=== PATIENT | female | born 1960 | race Caucasian/White ===

== ENCOUNTER 2017-05-05 07:41 | Day surgery (SDC) | payer BC ==
[2017-05-05] MEDS ORDERED: NS 1000 ML 1,000 ML ONE (07:49)
[2017-05-05] MEDS ORDERED: XYLOCAINE 1% and EPINEPHRINE 1:100,000 ONE (07:49)
[2017-05-05] MEDS ORDERED: MARCAINE 0.25% INJ ONE (07:50)
[2017-05-05 08:17] LABS: BASOPHILS # (AUTO) 0.1 X10^3/uL (0.0-0.1); BASOPHILS % (AUTO) 1.4 % (0.2-1.0); EOSINOPHILS # (AUTO) 0.1 x10^3/uL (0.0-0.2); HEMATOCRIT 40.6 % (36.0-47.0); HEMOGLOBIN 13.8 g/dL (12.0-16.0); LYMPHOCYTES % (AUTO) 25.9 % (21.0-51.0); MEAN CORPUSCULAR HEMOGLOBIN 29.5 pg (27.0-34.0); MEAN CORPUSCULAR HGB CONC 34.1 g/dL (33.0-35.0); MEAN CORPUSCULAR VOLUME 86.4 fL (80.0-100.0); MEAN PLATELET VOLUME 8.4 fL (7.4-11.0); MONOCYTES # (AUTO) 0.5 x10^3/uL (0.3-0.8); MONOCYTES % (AUTO) 6.5 % (0.0-13.0); NEUTROPHILS # (AUTO) 4.9 x10^3/uL (2.2-4.8); NEUTROPHILS % (AUTO) 65.2 % (42.0-75.0); PLATELET COUNT 266 X10^3/uL (150.0-450.0); RED CELL DISTRIBUTION WIDTH 13.5 % (11.6-16.5); WHITE BLOOD COUNT 7.6 X10^3/uL (3.6-10.0)
[2017-05-05 08:26] LABS: ALANINE AMINOTRANSFERASE 32 Units/L (12-78); ALBUMIN 3.9 g/dL (3.4-5.0); ALKALINE PHOSPHATASE 108 Units/L (46-116); ASPARTATE AMINO TRANSFERASE 22 Units/L (15-37); BLOOD UREA NITROGEN 10 mg/dL (7-18); CALCIUM 9.2 mg/dL (8.5-10.1); CARBON DIOXIDE 30.1 mmol/L (21-32); CHLORIDE 106 mmol/L (98-107); CREATININE 0.82 mg/dL (0.55-1.02); SODIUM 140 mmol/L (136-145); TOTAL PROTEIN 7.6 g/dL (6.4-8.2); eGFR BLACK RACES > 60 (>60); eGFR NON BLACK RACES > 60 (>60)
[2017-05-05] MEDS ORDERED: CLEOCIN VIAL 600 MG ONE (08:35)
[2017-05-05] MEDS ORDERED: NS IRRIGATION 1000 ML 500 ML IR ONE (10:22)
[2017-05-05] MEDS ORDERED: NORCO 5/325 MG TAB PO PRN (11:12)
--- NOTE | 2017-05-05 11:12 | OR.GENERIC ---
Post-Op Note Generic - Post-Op Note Operative Report: Operative Report Date of Operation: May 05, 2017 Pre-Operative Diagnosis: Left hip lipoma. Post-Operative Diagnosis: Left hip sebaceous cyst (4.5 cm diameter). Procedure: Excision of left hip sebaceous cyst. Surgeon: Marek Aguirre MD Wood Craftsman: Cortney Franco CRNA Anesthesia: Monitored anesthesia care and local. Specimen: Left hip sebaceous cyst. Estimated blood loss: Minimal. Complications: None. Summary: The patient is a 57 year old female who presented with a left hip subcutaneous mass. This appeared to be a lipoma. The patient was offered excision. The risk and benefits of the procedure including difficulty with anesthesia, bleeding, infection, scar formation, recurrence, and delayed healing were discussed with the patient. The patient understood these risks and requested the procedure. On May 05, 2017, the patient was brought to the operative theatre. A time out was performed verifying the patient and the procedure. After satisfactory induction of monitored anesthesia care, the left hip was prepped with Chloraprep and draped in the usual fashion. A field block was performed using local anesthetic. A fusiform incision was made overlying the mass and a core of skin removed. The capsule was identified and from the dermis in all directions using electrocautery. The deep margin was dissected free using electrocautery. The capsule was passed off the field. Hemostasis was achieved using electrocautery. A stab incision was made inferior to the incision and a flat JOSE ENRIQUE advanced into the wound bed. This was sewn into position with 2-0 Ethilon suture. The dermis was re-approximated using inverted, interrupted 3-0 Vicryl sutures. The skin edges were closed using a running 4-0 Monocryl. Skin veronica were placed sparingly. Mastisol and steri-strips were placed between the veronica. A sterile dressing was placed. The patient was awakened and taken to the recovery room in stable condition. There were no complications. All counts were correct.
[2017-05-05 11:32] VITALS: BP 116/58
[2017-05-05] MEDS ORDERED: DIPRIVAN VIAL ONE (15:25)
[2017-05-05] MEDS ORDERED: VERSED ONE (15:25)
== END 2017-05-05 11:35 | disposition home or self-care (01) | DRG 607 ==
LOC: SURG1 07:41
PROVIDERS: ATTEND Student in an Organized Health Care Education/Training Program
PROC: 0JBM0ZX Excision of Left Upper Leg Subcutaneous Tissue and Fascia, Open Approach, Diagnostic (ICD-10-PCS; principal; 2017-05-05 08:30)
DX: L72.3 Sebaceous cyst (principal)
CPT/HCPCS: 36415; 80053; 85025; A4222; S0020; J2001; J2250; J3490; S0077

== ENCOUNTER 2019-09-01 14:07 | Inpatient (IN) ==
[2019-09-01 21:54] LABS: BASOPHILS # (AUTO) 0.1 X10^3/uL (0.0-0.1); BASOPHILS % (AUTO) 1.2 % (0.2-1.0); EOSINOPHILS # (AUTO) 0.1 x10^3/uL (0.0-0.2); HEMATOCRIT 39.9 % (36.0-47.0); HEMOGLOBIN 13.5 g/dL (12.0-16.0); LYMPHOCYTES # (AUTO) 2.3 X10^3/uL (1.3-2.9); LYMPHOCYTES % (AUTO) 25.3 % (21.0-51.0); MEAN CORPUSCULAR HEMOGLOBIN 28.9 pg (27.0-34.0); MEAN CORPUSCULAR HGB CONC 33.7 g/dL (33.0-35.0); MEAN CORPUSCULAR VOLUME 85.7 fL (80.0-100.0); MEAN PLATELET VOLUME 7.8 fL (7.4-11.0); MONOCYTES # (AUTO) 0.7 x10^3/uL (0.3-0.8); MONOCYTES % (AUTO) 8.1 % (0.0-13.0); NEUTROPHILS # (AUTO) 5.9 x10^3/uL (2.2-4.8); NEUTROPHILS % (AUTO) 64.4 % (42.0-75.0); PLATELET COUNT 316 X10^3/uL (150.0-450.0); RED BLOOD COUNT 4.66 X10^6/uL (3.5-5.4); RED CELL DISTRIBUTION WIDTH 13.6 % (11.6-16.5); WHITE BLOOD COUNT 9.2 X10^3/uL (3.6-10.0)
[2019-09-01 22:05] LABS: ALANINE AMINOTRANSFERASE 18 Units/L (12-78); ALBUMIN 3.4 g/dL (3.4-5.0); ALKALINE PHOSPHATASE 114 Units/L (46-116); ASPARTATE AMINO TRANSFERASE 15 Units/L (15-37); BLOOD UREA NITROGEN 14 mg/dL (7-18); CARBON DIOXIDE 26.4 mmol/L (21-32); CHLORIDE 105 mmol/L (98-107); CREATININE 0.79 mg/dL (0.55-1.02); SODIUM 139 mmol/L (136-145); TOTAL PROTEIN 7.4 g/dL (6.4-8.2); eGFR NON BLACK RACES > 60 (>60)
[2019-09-01] MEDS ORDERED: RESTORIL CAP 15 MG PO PRN (22:48)
[2019-09-01 23:20] VITALS: BMI 25.1
--- NOTE | 2019-09-02 12:03 | RAD ---
HISTORYConstipationSTUDYKUBCOMPARISONNoneFINDINGSThere is fecal distention and dilatation of the left colon. No definite mechanical obstruction is identified. Otherwise the bowel gas pattern is normal. There are surgical clips in the right upper quadrant. No organ enlargement or ascites is demonstrated .IMPRESSIONDescribed findings consistent with constipation.Electronically signed by: SO ADAME ( Sep 02, 2019 12:02:08)
[2019-09-02] MEDS ORDERED: DULCOLAX SUPPOSITORY 10 MG RECTAL ONE (13:42)
--- NOTE | 2019-09-02 13:45 | DR.H&P ---
H&P - History & Physical for Day of: H&P Date: 09/01/19 - Chief Complaint Chief Complaint: L SIDE WEAKNESS, CONSTIPATION, SOB, CCC - History of Present Illness History of Present Illness: PT IS 59 WF BACK TRANSFER FROM [facility] IN [place] FOLLOWING ACUTE CVA WITH LEFT SIDE WEAKNESS. PT HAS PMH OF HTN AND COPD. PT CO CONSTIPATION AND CCC SINCE ACCIDENT. PT REPORTS SHE WAS SICK WITH FLU PRIOR TO CVA. PT ALSO REPORTS SOB WITH ANXIETY, NORMALLY ON XANAX PRN. PT ADMITTED FOR TREATMENT OF ACUTE ILLNESS AND PLANS FOR PT/OT. - Past Medical History Past Medical History: Arthritis, COPD, CVA, Dyslipidemia, Hypertension - Past Surgical History Surgical History: Appendectomy, Cholecystectomy, WARRANTY ADMINISTRATOR Surgery, Ortho Surgery, Tonsillectomy, Other - Family History Family Medical History: Diabetes Mellitus, DE, Coronary Artery Disease, Hypertension - Social History Does patient currently use any type of tobacco product: Yes Have you used tobacco products in the last 12 months: Yes Type of Tobacco Use: Cigarettes Alcohol Use: None Drug Use: None - Medications Home Medications: Penicillins Allergy (Verified 04/21/19 14:02) CONTINUE taking the following medications NK 09/02/19 [History] - Review of Systems Constitutional: Weakness Eyes: No Symptoms Reported ENT: No Symptoms Reported Respiratory: Cough, Shortness of Breath, Wheezing Cardiovascular: No Symptoms Reported Gastrointestinal: Constipation Genitourinary: No Symptoms Reported Musculoskeletal: Shoulder Pain (LEFT), Back Pain Skin: No Symptoms Reported Neurological: Weakness - Physical Exam Vital Signs: Temperature 97.9 F Pulse Rate [Radial] 86 Respiratory Rate 16 Blood Pressure [Right Arm] 144/75 Blood Pressure [Left Arm] 102/57 Blood Pressure 164/70 O2 Sat by Pulse Oximetry 95 Oriented: Normal Eyes: Normal Ear: Normal Nose: Normal Throat: Normal Respiratory: Rhonchi Throughout, RLL Diminished, LLL Diminished Cardiovascular: Normal. negative: Edema : Normal Auscultation: Bowel Sounds: Normal Palpation: Normal Tenderness: Normal Skin: Decreased Turgur Musculoskeletal: Left, Shoulder, Back:Thoracic, Back:Lumbar, Tender Psychiatric: Anxiety Mood Description: Sad, Anxious Affect: Anxious Speech Pattern: Appropriate - Assessment/Plan (1) CVA (cerebral vascular accident) Status: Acute Plan: ADMIT, PT/OT. RESUME MEDICATION, STATIN, PLAVIX BP CONTROL. CXR ON ADMISSION, RESUME DIET TOLERATED. ASPIRATION PRECAUTIONS, RESP CONSULT. PAIN CONTROL, BOWEL REGIMEN (2) COPD (chronic obstructive pulmonary disease) with acute bronchitis Status: Acute (3) GERD (gastroesophageal reflux disease) Status: Chronic (4) Hyperlipidemia Status: Chronic (5) Hypertension Status: Chronic (6) Osteoarthritis Status: Chronic - Allergies Allergies/Adverse Reactions: Allergies Allergy/AdvReac Type Severity Reaction Status Date / Time Penicillins Allergy Verified 04/21/19 14:02
[2019-09-02] MEDS: PLAVIX PO SCH (14:55)
[2019-09-02] MEDS: ZESTRIL TAB 10 MG PO SCH (14:55)
[2019-09-02] MEDS: NICOTINE PATCH TD SCH (14:55)
[2019-09-02] MEDS: ROBITUSSIN DM PO PRN ×2 (14:56→20:58)
[2019-09-02] MEDS: NORCO 5/325 MG TAB PO PRN ×2 (14:56→20:57)
[2019-09-02] MEDS: XANAX PO PRN ×2 (14:56→20:57)
[2019-09-02] MEDS: ZOCOR TAB 20 MG PO SCH (20:57)
[2019-09-02] MEDS: COLACE CAP 100 MG PO SCH (20:58)
[2019-09-02] MEDS: MILK OF MAGNESIA PO SCH (20:59)
[2019-09-02] MEDS: DUONEB 0.5 MG/3 MG (3 mL) NEB SCH (21:00)
[2019-09-02] MEDS ORDERED: ULTRAM ONE (23:50)
[2019-09-02] MEDS: ULTRAM PO PRN (23:51)
[2019-09-03] MEDS: DUONEB 0.5 MG/3 MG (3 mL) NEB SCH ×3 (05:25→21:20)
[2019-09-03 05:30] LABS: BASOPHILS # (AUTO) 0.1 X10^3/uL (0.0-0.1); BASOPHILS % (AUTO) 0.7 % (0.2-1.0); EOSINOPHILS # (AUTO) 0.1 x10^3/uL (0.0-0.2); EOSINOPHILS % (AUTO) 1.4 % (0.9-2.9); HEMATOCRIT 42.5 % (36.0-47.0); HEMOGLOBIN 14.4 g/dL (12.0-16.0); LYMPHOCYTES # (AUTO) 2.2 X10^3/uL (1.3-2.9); LYMPHOCYTES % (AUTO) 26.8 % (21.0-51.0); MEAN CORPUSCULAR HEMOGLOBIN 29.2 pg (27.0-34.0); MEAN CORPUSCULAR HGB CONC 33.7 g/dL (33.0-35.0); MEAN CORPUSCULAR VOLUME 86.6 fL (80.0-100.0); MEAN PLATELET VOLUME 7.8 fL (7.4-11.0); MONOCYTES # (AUTO) 0.6 x10^3/uL (0.3-0.8); MONOCYTES % (AUTO) 7.5 % (0.0-13.0); NEUTROPHILS # (AUTO) 5.2 x10^3/uL (2.2-4.8); NEUTROPHILS % (AUTO) 63.6 % (42.0-75.0); PLATELET COUNT 313 X10^3/uL (150.0-450.0); RED BLOOD COUNT 4.91 X10^6/uL (3.5-5.4); RED CELL DISTRIBUTION WIDTH 13.6 % (11.6-16.5); WHITE BLOOD COUNT 8.1 X10^3/uL (3.6-10.0)
[2019-09-03 06:20] LABS: ALANINE AMINOTRANSFERASE 27 Units/L (12-78); ALBUMIN 3.5 g/dL (3.4-5.0); ALKALINE PHOSPHATASE 116 Units/L (46-116); ASPARTATE AMINO TRANSFERASE 22 Units/L (15-37); BLOOD UREA NITROGEN 14 mg/dL (7-18); CALCIUM 9.3 mg/dL (8.5-10.1); CARBON DIOXIDE 25.7 mmol/L (21-32); CHLORIDE 103 mmol/L (98-107); COR NA(FOR HYPERGLY) 141 mmol/L (136-145); CREATININE 0.78 mg/dL (0.55-1.02); SODIUM 141 mmol/L (136-145); TOTAL PROTEIN 7.7 g/dL (6.4-8.2); eGFR NON BLACK RACES > 60 (>60)
--- NOTE | 2019-09-03 07:12 | RAD ---
HISTORYCOPD, COUGH, CHEST CONGESTIONSTUDYCHEST, 1 VIEWCOMPARISONFebruary 2019.FINDINGSThe trachea is midline. The cardiac silhouette is unremarkable. There is a vertically oriented linear opacity projecting over the right lung base. The lungs are clear of consolidation, focal infiltrate, effusion or pneumothorax. The bony thorax is unremarkable.IMPRESSION1. Probable atelectasis in the right lung base. Otherwise no acute cardiopulmonary abnormality.Electronically signed by: NATALIA LEYVA (Sep 03, 2019 07:10:43)
[2019-09-03] MEDS: NICOTINE PATCH TD SCH (08:23)
[2019-09-03] MEDS: ZESTRIL TAB 10 MG PO SCH (08:23)
[2019-09-03] MEDS: PLAVIX PO SCH (08:26)
[2019-09-03] MEDS ORDERED: MILK OF MAGNESIA PO SCH (10:00)
[2019-09-03] MEDS: NORCO 5/325 MG TAB PO PRN ×2 (10:33→18:58)
[2019-09-03] MEDS: MIRALAX POWDER (1 DOSE 17 G) PO SCH (10:36)
[2019-09-03] MEDS: ULTRAM PO PRN ×2 (15:18→21:30)
[2019-09-03] MEDS: XANAX PO PRN (15:18)
[2019-09-03] MEDS: ZOCOR TAB 20 MG PO SCH (21:17)
[2019-09-03] MEDS: COLACE CAP 100 MG PO SCH (21:17)
[2019-09-03] MEDS: MILK OF MAGNESIA PO SCH (22:23)
[2019-09-04] MEDS: NORCO 5/325 MG TAB PO PRN ×2 (04:45→12:35)
[2019-09-04 05:25] LABS: BASOPHILS # (AUTO) 0.1 X10^3/uL (0.0-0.1); BASOPHILS % (AUTO) 0.9 % (0.2-1.0); EOSINOPHILS # (AUTO) 0.1 x10^3/uL (0.0-0.2); EOSINOPHILS % (AUTO) 1.2 % (0.9-2.9); HEMATOCRIT 40.6 % (36.0-47.0); HEMOGLOBIN 13.7 g/dL (12.0-16.0); LYMPHOCYTES # (AUTO) 1.9 X10^3/uL (1.3-2.9); LYMPHOCYTES % (AUTO) 25.4 % (21.0-51.0); MEAN CORPUSCULAR HEMOGLOBIN 29.1 pg (27.0-34.0); MEAN CORPUSCULAR HGB CONC 33.7 g/dL (33.0-35.0); MEAN CORPUSCULAR VOLUME 86.4 fL (80.0-100.0); MEAN PLATELET VOLUME 7.9 fL (7.4-11.0); MONOCYTES # (AUTO) 0.6 x10^3/uL (0.3-0.8); MONOCYTES % (AUTO) 7.6 % (0.0-13.0); NEUTROPHILS # (AUTO) 4.8 x10^3/uL (2.2-4.8); NEUTROPHILS % (AUTO) 64.9 % (42.0-75.0); PLATELET COUNT 353 X10^3/uL (150.0-450.0); RED CELL DISTRIBUTION WIDTH 13.9 % (11.6-16.5); WHITE BLOOD COUNT 7.4 X10^3/uL (3.6-10.0)
[2019-09-04] MEDS: DUONEB 0.5 MG/3 MG (3 mL) NEB SCH ×3 (05:25→21:00)
[2019-09-04 05:50] LABS: ALANINE AMINOTRANSFERASE 38 Units/L (12-78); ALBUMIN 3.4 g/dL (3.4-5.0); ALKALINE PHOSPHATASE 115 Units/L (46-116); ASPARTATE AMINO TRANSFERASE 29 Units/L (15-37); BLOOD UREA NITROGEN 11 mg/dL (7-18); CARBON DIOXIDE 30.1 mmol/L (21-32); CHLORIDE 102 mmol/L (98-107); COR NA(FOR HYPERGLY) 140 mmol/L (136-145); CREATININE 0.66 mg/dL (0.55-1.02); SODIUM 139 mmol/L (136-145); TOTAL PROTEIN 7.5 g/dL (6.4-8.2); eGFR NON BLACK RACES > 60 (>60)
[2019-09-04] MEDS: ULTRAM PO PRN ×3 (07:02→21:12)
[2019-09-04] MEDS: ZESTRIL TAB 10 MG PO SCH (08:39)
[2019-09-04] MEDS: PLAVIX PO SCH (08:39)
[2019-09-04] MEDS: NICOTINE PATCH TD SCH (08:40)
[2019-09-04] MEDS: MIRALAX POWDER (1 DOSE 17 G) PO SCH (08:47)
[2019-09-04] MEDS: LOVENOX INJ 40 MG SYR SC SCH (10:33)
[2019-09-04] MEDS: ASPIRIN EC 81 MG PO SCH (14:44)
[2019-09-04] MEDS: COLACE CAP 100 MG PO SCH (21:12)
[2019-09-04] MEDS: ZOCOR TAB 20 MG PO SCH (21:13)
[2019-09-04] MEDS: XANAX PO PRN (21:18)
[2019-09-05] MEDS: MILK OF MAGNESIA PO SCH ×2 (00:33→21:04)
[2019-09-05] MEDS: DUONEB 0.5 MG/3 MG (3 mL) NEB SCH ×3 (05:36→20:25)
[2019-09-05 06:26] LABS: BASOPHILS # (AUTO) 0.1 X10^3/uL (0.0-0.1); BASOPHILS % (AUTO) 1.3 % (0.2-1.0); EOSINOPHILS # (AUTO) 0.1 x10^3/uL (0.0-0.2); EOSINOPHILS % (AUTO) 1.7 % (0.9-2.9); HEMATOCRIT 39.9 % (36.0-47.0); HEMOGLOBIN 13.5 g/dL (12.0-16.0); LYMPHOCYTES # (AUTO) 1.5 X10^3/uL (1.3-2.9); LYMPHOCYTES % (AUTO) 23.6 % (21.0-51.0); MEAN CORPUSCULAR HEMOGLOBIN 29.2 pg (27.0-34.0); MEAN CORPUSCULAR HGB CONC 33.8 g/dL (33.0-35.0); MEAN CORPUSCULAR VOLUME 86.3 fL (80.0-100.0); MEAN PLATELET VOLUME 7.9 fL (7.4-11.0); MONOCYTES # (AUTO) 0.7 x10^3/uL (0.3-0.8); MONOCYTES % (AUTO) 10.5 % (0.0-13.0); NEUTROPHILS # (AUTO) 3.9 x10^3/uL (2.2-4.8); NEUTROPHILS % (AUTO) 62.9 % (42.0-75.0); PLATELET COUNT 337 X10^3/uL (150.0-450.0); RED BLOOD COUNT 4.62 X10^6/uL (3.5-5.4); RED CELL DISTRIBUTION WIDTH 13.9 % (11.6-16.5); WHITE BLOOD COUNT 6.2 X10^3/uL (3.6-10.0)
[2019-09-05 06:36] LABS: ALANINE AMINOTRANSFERASE 38 Units/L (12-78); ALBUMIN 3.5 g/dL (3.4-5.0); ALKALINE PHOSPHATASE 103 Units/L (46-116); ASPARTATE AMINO TRANSFERASE 23 Units/L (15-37); BLOOD UREA NITROGEN 10 mg/dL (7-18); CALCIUM 9.2 mg/dL (8.5-10.1); CARBON DIOXIDE 30.6 mmol/L (21-32); CHLORIDE 103 mmol/L (98-107); COR NA(FOR HYPERGLY) 139 mmol/L (136-145); CREATININE 0.78 mg/dL (0.55-1.02); SODIUM 139 mmol/L (136-145); TOTAL PROTEIN 7.5 g/dL (6.4-8.2); eGFR NON BLACK RACES > 60 (>60)
[2019-09-05] MEDS: NICOTINE PATCH TD SCH (08:35)
[2019-09-05] MEDS: MIRALAX POWDER (1 DOSE 17 G) PO SCH (08:36)
[2019-09-05] MEDS: LOVENOX INJ 40 MG SYR SC SCH (08:36)
[2019-09-05] MEDS: PLAVIX PO SCH (08:37)
[2019-09-05] MEDS: ZESTRIL TAB 10 MG PO SCH (08:41)
[2019-09-05] MEDS: ASPIRIN EC 81 MG PO SCH (08:43)
[2019-09-05] MEDS: NORCO 5/325 MG TAB PO PRN ×3 (08:44→21:07)
[2019-09-05] MEDS: XANAX PO PRN ×2 (09:48→21:07)
[2019-09-05] MEDS: ULTRAM PO PRN (14:07)
[2019-09-05] MEDS ORDERED: LEXAPRO ONE (16:26)
[2019-09-05] MEDS: VALTREX PO SCH ×2 (16:32→21:04)
[2019-09-05] MEDS: LEXAPRO PO SCH ×2 (16:32→21:03)
[2019-09-05] MEDS ORDERED: MAALOX or MYLANTA PO PRN (16:56)
--- NOTE | 2019-09-05 18:46 | PCM.PROG ---
Progress Note - Progress Note for Day of Date of Exam: 09/04/19 - Subjective Subjective: The patient is a 59-year-old white female who is back for admission from [facility] following a CVA with left upper and lower extremity weakness noted. The patient has been resumed medications including Aspirin, Guerita, Plavix, and blood pressure control. The patient suffers from severe lumbar spine degenerative disc disease and has been complaining of pain as well as pain to her left shoulder. We have resumed her pain medications as well. We will obtain MRI in the morning to evaluate the patients severity of the degenerative disc disease. The patient has had a PT/OT consult. She is reporting good oral intake as well. We started the patient on a low dose of Lexapro due to some anxiety and depression regarding her acute illness of the new CVA. Pt is having sputum production and diffuse lower expiratory wheezing, currently on duo nebs and iv atbx for bronchitis. - Past Medical Family Social History Past Med/Fam/Surg Hx: No changes since H&P Allergies: Allergies Penicillins Allergy (Verified 04/21/19 14:02) - Review of Systems ROS: No change since H&P - Vital Signs and I&O's Vital Signs: Temperature 97.9 F Pulse Rate [Radial] 86 Pulse Rate 92 Respiratory Rate 16 Blood Pressure [Right Arm] 122/67 Blood Pressure [Left Arm] 114/63 Blood Pressure 164/70 O2 Sat by Pulse Oximetry 94 Intake and Output: Intake & Output 09/03/19 09/04/19 09/05/19 09/06/19 11:59 11:59 11:59 11:59 Intake Total 1040 / 1040 1680 / 1680 2510 / 2510 680 / 680 Balance 1040 / 1040 1680 / 1680 2510 / 2510 680 / 680 - Physical Exam Oriented: Normal Eyes: Normal Ear: Normal Nose: Normal Throat: Normal Respiratory: Wheezes, Rhonchi Cardiovascular: Normal. negative: Edema : Normal Auscultation: Bowel Sounds: Normal Tenderness: Normal Skin: Decreased Turgur Musculoskeletal: Left, Shoulder, Back:Thoracic, Back:Lumbar, Tender Psychiatric: Anxiety Mood Description: Sad, Anxious Affect: Anxious Speech Pattern: Clear, Appropriate - Laboratory and Diagnostics Result Diagrams: 09/05/19 05:20 09/05/19 05:20 Labs: Laboratory WBC 6.2 X10^3/uL (3.6-10.0) 09/05/19 05:20 RBC 4.62 X10^6/uL (3.5-5.4) 09/05/19 05:20 Hgb 13.5 g/dL (12.0-16.0) 09/05/19 05:20 Hct 39.9 % (36.0-47.0) 09/05/19 05:20 MCV 86.3 fL (80.0-100.0) 09/05/19 05:20 MCH 29.2 pg (27.0-34.0) 09/05/19 05:20 MCHC 33.8 g/dL (33.0-35.0) 09/05/19 05:20 RDW 13.9 % (11.6-16.5) 09/05/19 05:20 Plt Count 337 X10^3/uL (150.0-450.0) 09/05/19 05:20 MPV 7.9 fL (7.4-11.0) 09/05/19 05:20 Neut % (Auto) 62.9 % (42.0-75.0) 09/05/19 05:20 Lymph % (Auto) 23.6 % (21.0-51.0) 09/05/19 05:20 [place] % (Auto) 10.5 % (0.0-13.0) 09/05/19 05:20 Eos % (Auto) 1.7 % (0.9-2.9) 09/05/19 05:20 Baso % (Auto) 1.3 % (0.2-1.0) H 09/05/19 05:20 Neut # (Auto) 3.9 x10^3/uL (2.2-4.8) 09/05/19 05:20 Lymph # (Auto) 1.5 X10^3/uL (1.3-2.9) 09/05/19 05:20 Calvert # (Auto) 0.7 x10^3/uL (0.3-0.8) 09/05/19 05:20 Eos # (Auto) 0.1 x10^3/uL (0.0-0.2) 09/05/19 05:20 Baso # (Auto) 0.1 X10^3/uL (0.0-0.1) 09/05/19 05:20 Absolute Nucleated RBC 0.0 /100WBC 09/05/19 05:20 Sodium 139 mmol/L (136-145) 09/05/19 05:20 Corrected Sodium 139 mmol/L (136-145) 09/05/19 05:20 Potassium 4.1 mmol/L (3.5-5.1) 09/05/19 05:20 Chloride 103 mmol/L (98-107) 09/05/19 05:20 Carbon Dioxide 30.6 mmol/L (21-32) 09/05/19 05:20 BUN 10 mg/dL (7-18) 09/05/19 05:20 Creatinine 0.78 mg/dL (0.55-1.02) 09/05/19 05:20 Est GFR (MDRD) Af Amer > 60 (>60) 09/05/19 05:20 Est GFR (MDRD) Non-Af > 60 (>60) 09/05/19 05:20 Glucose 113 mg/dL (65-99) H 09/05/19 05:20 Calcium 9.2 mg/dL (8.5-10.1) 09/05/19 05:20 Corrected Calcium TNP 09/05/19 05:20 Magnesium 2.1 mg/dL (1.7-2.9) 09/03/19 04:58 Total Bilirubin 0.40 mg/dL (0.2-1.0) 09/05/19 05:20 AST 23 Units/L (15-37) 09/05/19 05:20 ALT 38 Units/L (12-78) 09/05/19 05:20 Alkaline Phosphatase 103 Units/L (46-116) 09/05/19 05:20 Total Protein 7.5 g/dL (6.4-8.2) 09/05/19 05:20 Albumin 3.5 g/dL (3.4-5.0) 09/05/19 05:20 Globulin 4.0 g/dL (2.5-4.5) 09/05/19 05:20 Albumin/Globulin Ratio 0.9 Ratio (1.1-2.1) L 09/05/19 05:20 - Plan (1) CVA (cerebral vascular accident) Status: Acute Plan: ADMIT, PT/OT. RESUME MEDICATION, STATIN, PLAVIX BP CONTROL. CXR ON ADMISSION, RESUME DIET TOLERATED. ASPIRATION PRECAUTIONS, RESP CONSULT. PAIN CONTROL, BOWEL REGIMEN (2) COPD (chronic obstructive pulmonary disease) with acute bronchitis Status: Acute (3) GERD (gastroesophageal reflux disease) Status: Chronic (4) Hyperlipidemia Status: Chronic (5) Hypertension Status: Chronic (6) Osteoarthritis Status: Chronic
--- NOTE | 2019-09-05 18:48 | PCM.PROG ---
Progress Note - Progress Note for Day of Date of Exam: 09/05/19 - Subjective Subjective: The patient is a 59-year-old white female who is [facility] for [facility] following a CVA with left upper and lower extremity weakness noted. The patient has been resumed medications including Aspirin, Guerita, Plavix, and blood pressure control. The patient suffers from severe lumbar spine degenerative disc disease and has been complaining of pain as well as pain to her left shoulder. We have resumed her pain medications as well. Pt to have MRI of lspine this am to evaluate the patients severity of the degenerative disc disease. The patient has had a PT/OT consult. She is reporting good oral intake as well. We started the patient on a low dose of Lexapro due to some anxiety and depression regarding her acute illness of the new CVA. Pt is having sputum production and diffuse lower expiratory wheezing, currently on duo nebs and iv atbx for bronchitis. Pt has new patch of vesicular lesion with erythematous base to right buttock. Pt started on gabapentin and po valtrex for shingles rash. - Past Medical Family Social History Past Med/Fam/Surg Hx: No changes since H&P Allergies: Allergies Penicillins Allergy (Verified 04/21/19 14:02) - Review of Systems ROS: No change since H&P - Vital Signs and I&O's Vital Signs: Temperature 97.9 F Pulse Rate [Radial] 86 Pulse Rate 92 Respiratory Rate 16 Blood Pressure [Right Arm] 122/67 Blood Pressure [Left Arm] 114/63 Blood Pressure 164/70 O2 Sat by Pulse Oximetry 94 Intake and Output: Intake & Output 09/03/19 09/04/19 09/05/19 09/06/19 11:59 11:59 11:59 11:59 Intake Total 1040 / 1040 1680 / 1680 2510 / 2510 680 / 680 Balance 1040 / 1040 1680 / 1680 2510 / 2510 680 / 680 - Physical Exam Oriented: Normal Eyes: Normal Ear: Normal Nose: Normal Throat: Normal Respiratory: Wheezes, Rhonchi Cardiovascular: Normal. negative: Edema : Normal Auscultation: Bowel Sounds: Normal Tenderness: Normal Skin: Rash, Vesicular, Red, Tender Musculoskeletal: Left, Shoulder, Back:Thoracic, Back:Lumbar, Tender Psychiatric: Anxiety Mood Description: Sad, Anxious Affect: Anxious Speech Pattern: Clear, Appropriate - Laboratory and Diagnostics Result Diagrams: 09/05/19 05:20 09/05/19 05:20 Labs: Laboratory WBC 6.2 X10^3/uL (3.6-10.0) 09/05/19 05:20 RBC 4.62 X10^6/uL (3.5-5.4) 09/05/19 05:20 Hgb 13.5 g/dL (12.0-16.0) 09/05/19 05:20 Hct 39.9 % (36.0-47.0) 09/05/19 05:20 MCV 86.3 fL (80.0-100.0) 09/05/19 05:20 MCH 29.2 pg (27.0-34.0) 09/05/19 05:20 MCHC 33.8 g/dL (33.0-35.0) 09/05/19 05:20 RDW 13.9 % (11.6-16.5) 09/05/19 05:20 Plt Count 337 X10^3/uL (150.0-450.0) 09/05/19 05:20 MPV 7.9 fL (7.4-11.0) 09/05/19 05:20 Neut % (Auto) 62.9 % (42.0-75.0) 09/05/19 05:20 Lymph % (Auto) 23.6 % (21.0-51.0) 09/05/19 05:20 [place] % (Auto) 10.5 % (0.0-13.0) 09/05/19 05:20 Eos % (Auto) 1.7 % (0.9-2.9) 09/05/19 05:20 Baso % (Auto) 1.3 % (0.2-1.0) H 09/05/19 05:20 Neut # (Auto) 3.9 x10^3/uL (2.2-4.8) 09/05/19 05:20 Lymph # (Auto) 1.5 X10^3/uL (1.3-2.9) 09/05/19 05:20 [place] # (Auto) 0.7 x10^3/uL (0.3-0.8) 09/05/19 05:20 Eos # (Auto) 0.1 x10^3/uL (0.0-0.2) 09/05/19 05:20 Baso # (Auto) 0.1 X10^3/uL (0.0-0.1) 09/05/19 05:20 Absolute Nucleated RBC 0.0 /100WBC 09/05/19 05:20 Sodium 139 mmol/L (136-145) 09/05/19 05:20 Corrected Sodium 139 mmol/L (136-145) 09/05/19 05:20 Potassium 4.1 mmol/L (3.5-5.1) 09/05/19 05:20 Chloride 103 mmol/L (98-107) 09/05/19 05:20 Carbon Dioxide 30.6 mmol/L (21-32) 09/05/19 05:20 BUN 10 mg/dL (7-18) 09/05/19 05:20 Creatinine 0.78 mg/dL (0.55-1.02) 09/05/19 05:20 Est GFR (MDRD) Af Amer > 60 (>60) 09/05/19 05:20 Est GFR (MDRD) Non-Af > 60 (>60) 09/05/19 05:20 Glucose 113 mg/dL (65-99) H 09/05/19 05:20 Calcium 9.2 mg/dL (8.5-10.1) 09/05/19 05:20 Corrected Calcium TNP 09/05/19 05:20 Magnesium 2.1 mg/dL (1.7-2.9) 09/03/19 04:58 Total Bilirubin 0.40 mg/dL (0.2-1.0) 09/05/19 05:20 AST 23 Units/L (15-37) 09/05/19 05:20 ALT 38 Units/L (12-78) 09/05/19 05:20 Alkaline Phosphatase 103 Units/L (46-116) 09/05/19 05:20 Total Protein 7.5 g/dL (6.4-8.2) 09/05/19 05:20 Albumin 3.5 g/dL (3.4-5.0) 09/05/19 05:20 Globulin 4.0 g/dL (2.5-4.5) 09/05/19 05:20 Albumin/Globulin Ratio 0.9 Ratio (1.1-2.1) L 09/05/19 05:20 - Plan (1) CVA (cerebral vascular accident) Status: Acute Plan: ADMIT, PT/OT. RESUME MEDICATION, STATIN, PLAVIX BP CONTROL. CXR ON ADMISSION, RESUME DIET TOLERATED. ASPIRATION PRECAUTIONS, RESP CONSULT. PAIN CONTROL, BOWEL REGIMEN (2) COPD (chronic obstructive pulmonary disease) with acute bronchitis Status: Acute (3) GERD (gastroesophageal reflux disease) Status: Chronic (4) Hyperlipidemia Status: Chronic (5) Hypertension Status: Chronic (6) Osteoarthritis Status: Chronic (7) Shingles Status: Acute
[2019-09-05] MEDS: COLACE CAP 100 MG PO SCH (21:03)
[2019-09-05] MEDS: NEURONTIN CAP 100 MG PO SCH ×3 (21:03→21:07)
[2019-09-05] MEDS: ZOCOR TAB 20 MG PO SCH (21:04)
[2019-09-06] MEDS: DUONEB 0.5 MG/3 MG (3 mL) NEB SCH ×3 (05:20→20:15)
[2019-09-06] MEDS: NEURONTIN CAP 100 MG PO SCH ×3 (06:13→22:11)
[2019-09-06 06:14] LABS: BASOPHILS # (AUTO) 0.1 X10^3/uL (0.0-0.1); BASOPHILS % (AUTO) 0.5 % (0.2-1.0); EOSINOPHILS # (AUTO) 0.1 x10^3/uL (0.0-0.2); EOSINOPHILS % (AUTO) 0.4 % (0.9-2.9); HEMATOCRIT 39.4 % (36.0-47.0); HEMOGLOBIN 13.4 g/dL (12.0-16.0); LYMPHOCYTES # (AUTO) 1.6 X10^3/uL (1.3-2.9); MEAN CORPUSCULAR HGB CONC 33.9 g/dL (33.0-35.0); MEAN CORPUSCULAR VOLUME 85.6 fL (80.0-100.0); MEAN PLATELET VOLUME 7.9 fL (7.4-11.0); MONOCYTES # (AUTO) 0.7 x10^3/uL (0.3-0.8); MONOCYTES % (AUTO) 6.2 % (0.0-13.0); NEUTROPHILS # (AUTO) 9.3 x10^3/uL (2.2-4.8); NEUTROPHILS % (AUTO) 78.9 % (42.0-75.0); PLATELET COUNT 330 X10^3/uL (150.0-450.0); RED CELL DISTRIBUTION WIDTH 13.4 % (11.6-16.5); WHITE BLOOD COUNT 11.8 X10^3/uL (3.6-10.0)
[2019-09-06 06:33] LABS: ALANINE AMINOTRANSFERASE 33 Units/L (12-78); ALBUMIN 3.4 g/dL (3.4-5.0); ALKALINE PHOSPHATASE 118 Units/L (46-116); ASPARTATE AMINO TRANSFERASE 19 Units/L (15-37); BLOOD UREA NITROGEN 11 mg/dL (7-18); CARBON DIOXIDE 27.1 mmol/L (21-32); CHLORIDE 99 mmol/L (98-107); COR NA(FOR HYPERGLY) 134 mmol/L (136-145); CREATININE 0.69 mg/dL (0.55-1.02); SODIUM 134 mmol/L (136-145); TOTAL PROTEIN 7.6 g/dL (6.4-8.2); eGFR NON BLACK RACES > 60 (>60)
[2019-09-06] MEDS: MIRALAX POWDER (1 DOSE 17 G) PO SCH (08:45)
[2019-09-06] MEDS: VALTREX PO SCH ×2 (08:52→22:10)
--- NOTE | 2019-09-06 08:52 | MRI ---
HISTORYLOW BACK PAINSTUDYMRI L SPINE W/O IV CONTRASTCOMPARISONNoneTECHNIQUEMultiplanar multisequence MRI of the lumbar spine was obtained without IV contrast.FINDINGSThe conus terminates at the L1 level. No spondylolisthesis. No compression fract ure or abnormal bony signal. There are bilateral adrenal nodules. Left adrenal nodule measures 2.0 x 1.2 cm. Right adrenal nodule measures 2.1 x 0.6 cm. Further evaluation with MRI of the adrenal glands using inphase and out of phase imaging is recommended.T12 -- L1: No significant stenosis.L1 -- L2: No significant stenosis.L2 -- L3: Mild right-sided disc bulge causes little right neural foraminal na rrowing.L3 -- L4: No significant stenosis.L4 -- L5: No significant stenosis. Mild facet arthropathy a nd hypertrophy. Mild left-sided disc bulge with tear of the annulus causes little left neural foramin al narrowing.L5 -- S1:No significant stenosis.IMPRESSIONMild left-sided disc bulge with tear of the a nnulus at L4-5 causes little left neural foraminal narrowing. No significant central canal stenosis i s seen on this study. Mild right-sided disc bulge is present at L2-3.Bilateral adrenal nodules should be further evaluated with MRI of the adrenal glands.Electronically signed by: Anuj Carbajal (Aug [id number] 08:51:18)
[2019-09-06] MEDS: ASPIRIN EC 81 MG PO SCH (08:53)
[2019-09-06] MEDS: LOVENOX INJ 40 MG SYR SC SCH (08:56)
[2019-09-06] MEDS: PLAVIX PO SCH (08:56)
[2019-09-06] MEDS: NICOTINE PATCH TD SCH (09:00)
[2019-09-06] MEDS: ULTRAM PO PRN (09:06)
[2019-09-06] MEDS: XANAX PO PRN ×2 (09:07→22:13)
[2019-09-06] MEDS: ZESTRIL TAB 10 MG PO SCH (10:10)
[2019-09-06] MEDS: NORCO 5/325 MG TAB PO PRN ×2 (14:55→22:11)
--- NOTE | 2019-09-06 18:42 | PCM.PROG ---
Progress Note - Progress Note for Day of Date of Exam: 09/06/19 - Subjective Subjective: The patient is a 59-year-old white female who is back for admission from [facility] following a CVA with left upper and lower extremity weakness noted. The patient has been resumed medications including Aspirin, Guerita, Plavix, and blood pressure control. The patient suffers from severe lumbar spine degenerative disc disease and has been complaining of pain as well as pain to her left shoulder. We have resumed her pain medications as well. Pt to have MRI of lspine this am to evaluate the patients severity of the degenerative disc disease. The patient has had a PT/OT consult. She is reporting good oral intake as well. We started the patient on a low dose of Lexapro due to some anxiety and depression regarding her acute illness of the new CVA. Pt is having sputum production and diffuse lower expiratory wheezing, currently on duo nebs and iv atbx for bronchitis. Pt has new patch of vesicular lesion with erythematous base to right buttock. Pt started on gabapentin and po valtrex for shingles rash. Pt MRI of lspine revealed adrenal mass, MRI of abd with contrast ordered with premedication for treatment of anxiety. Pt family contacted about DME and plan of care for DC home. - Past Medical Family Social History Past Med/Fam/Surg Hx: No changes since H&P Allergies: Allergies Penicillins Allergy (Verified 04/21/19 14:02) - Review of Systems ROS: No change since H&P - Vital Signs and I&O's Vital Signs: Temperature 98.1 F Pulse Rate [Radial] 87 Pulse Rate 81 Respiratory Rate 18 Blood Pressure [Right Arm] 116/57 Blood Pressure [Left Arm] 114/63 Blood Pressure 164/70 O2 Sat by Pulse Oximetry 96 Intake and Output: Intake & Output 09/04/19 09/05/19 09/06/19 09/07/19 11:59 11:59 11:59 11:59 Intake Total 1680 / 1680 2510 / 2510 1640 / 1640 1160 / 1160 Balance 1680 / 1680 2510 / 2510 1640 / 1640 1160 / 1160 - Physical Exam Oriented: Normal Eyes: Normal Ear: Normal Nose: Normal Throat: Normal Respiratory: Wheezes, Rhonchi Cardiovascular: Normal. negative: Edema : Normal Auscultation: Bowel Sounds: Normal Tenderness: Normal Skin: Rash, Vesicular, Red, Tender Musculoskeletal: Left, Shoulder, Back:Thoracic, Back:Lumbar, Tender Psychiatric: Anxiety Mood Description: Sad, Anxious Affect: Anxious Speech Pattern: Clear, Appropriate - Laboratory and Diagnostics Result Diagrams: 09/06/19 05:16 09/06/19 05:16 Labs: Laboratory WBC 11.8 X10^3/uL (3.6-10.0) H 09/06/19 05:16 RBC 4.60 X10^6/uL (3.5-5.4) 09/06/19 05:16 Hgb 13.4 g/dL (12.0-16.0) 09/06/19 05:16 Hct 39.4 % (36.0-47.0) 09/06/19 05:16 MCV 85.6 fL (80.0-100.0) 09/06/19 05:16 MCH 29.0 pg (27.0-34.0) 09/06/19 05:16 MCHC 33.9 g/dL (33.0-35.0) 09/06/19 05:16 RDW 13.4 % (11.6-16.5) 09/06/19 05:16 Plt Count 330 X10^3/uL (150.0-450.0) 09/06/19 05:16 MPV 7.9 fL (7.4-11.0) 09/06/19 05:16 Neut % (Auto) 78.9 % (42.0-75.0) H 09/06/19 05:16 Lymph % (Auto) 14.0 % (21.0-51.0) L 09/06/19 05:16 Edwards % (Auto) 6.2 % (0.0-13.0) 09/06/19 05:16 Eos % (Auto) 0.4 % (0.9-2.9) L 09/06/19 05:16 Baso % (Auto) 0.5 % (0.2-1.0) 09/06/19 05:16 Neut # (Auto) 9.3 x10^3/uL (2.2-4.8) H 09/06/19 05:16 Lymph # (Auto) 1.6 X10^3/uL (1.3-2.9) 09/06/19 05:16 Edwards # (Auto) 0.7 x10^3/uL (0.3-0.8) 09/06/19 05:16 Eos # (Auto) 0.1 x10^3/uL (0.0-0.2) 09/06/19 05:16 Baso # (Auto) 0.1 X10^3/uL (0.0-0.1) 09/06/19 05:16 Absolute Nucleated RBC 0.0 /100WBC 09/06/19 05:16 Sodium 134 mmol/L (136-145) L 09/06/19 05:16 Corrected Sodium 134 mmol/L (136-145) L 09/06/19 05:16 Potassium 4.2 mmol/L (3.5-5.1) 09/06/19 05:16 Chloride 99 mmol/L (98-107) 09/06/19 05:16 Carbon Dioxide 27.1 mmol/L (21-32) 09/06/19 05:16 BUN 11 mg/dL (7-18) 09/06/19 05:16 Creatinine 0.69 mg/dL (0.55-1.02) 09/06/19 05:16 Est GFR (MDRD) Af Amer > 60 (>60) 09/06/19 05:16 Est GFR (MDRD) Non-Af > 60 (>60) 09/06/19 05:16 Glucose 118 mg/dL (65-99) H 09/06/19 05:16 Calcium 9.0 mg/dL (8.5-10.1) 09/06/19 05:16 Corrected Calcium TNP 09/06/19 05:16 Magnesium 2.1 mg/dL (1.7-2.9) 09/03/19 04:58 Total Bilirubin 0.80 mg/dL (0.2-1.0) 09/06/19 05:16 AST 19 Units/L (15-37) 09/06/19 05:16 ALT 33 Units/L (12-78) 09/06/19 05:16 Alkaline Phosphatase 118 Units/L (46-116) H 09/06/19 05:16 Total Protein 7.6 g/dL (6.4-8.2) 09/06/19 05:16 Albumin 3.4 g/dL (3.4-5.0) 09/06/19 05:16 Globulin 4.2 g/dL (2.5-4.5) 09/06/19 05:16 Albumin/Globulin Ratio 0.8 Ratio (1.1-2.1) L 09/06/19 05:16 - Plan (1) CVA (cerebral vascular accident) Status: Acute Plan: PT/OT. RESUME MEDICATION, STATIN, PLAVIX BP CONTROL. CXR ON ADMISSION, RESUME DIET TOLERATED. ASPIRATION PRECAUTIONS, RESP CONSULT. PAIN CONTROL, BOWEL REGIMEN (2) COPD (chronic obstructive pulmonary disease) with acute bronchitis Status: Acute (3) GERD (gastroesophageal reflux disease) Status: Chronic (4) Hyperlipidemia Status: Chronic (5) Hypertension Status: Chronic (6) Osteoarthritis Status: Chronic (7) Shingles Status: Acute
[2019-09-06] MEDS ORDERED: LEXAPRO ONE (21:00)
[2019-09-06] MEDS: MILK OF MAGNESIA PO SCH (22:09)
[2019-09-06] MEDS: COLACE CAP 100 MG PO SCH (22:09)
[2019-09-06] MEDS: LEXAPRO PO SCH (22:09)
[2019-09-06] MEDS: ZOCOR TAB 20 MG PO SCH (22:10)
[2019-09-07] MEDS: DUONEB 0.5 MG/3 MG (3 mL) NEB SCH ×3 (05:30→20:35)
[2019-09-07] MEDS: NORCO 5/325 MG TAB PO PRN ×3 (06:00→20:25)
[2019-09-07] MEDS: NEURONTIN CAP 100 MG PO SCH ×3 (06:12→21:01)
[2019-09-07 07:17] LABS: BASOPHILS # (AUTO) 0.1 X10^3/uL (0.0-0.1); BASOPHILS % (AUTO) 0.7 % (0.2-1.0); EOSINOPHILS # (AUTO) 0.1 x10^3/uL (0.0-0.2); EOSINOPHILS % (AUTO) 1.2 % (0.9-2.9); HEMATOCRIT 38.6 % (36.0-47.0); LYMPHOCYTES # (AUTO) 1.7 X10^3/uL (1.3-2.9); LYMPHOCYTES % (AUTO) 21.6 % (21.0-51.0); MEAN CORPUSCULAR HEMOGLOBIN 28.9 pg (27.0-34.0); MEAN CORPUSCULAR HGB CONC 33.6 g/dL (33.0-35.0); MONOCYTES # (AUTO) 0.9 x10^3/uL (0.3-0.8); MONOCYTES % (AUTO) 10.9 % (0.0-13.0); NEUTROPHILS # (AUTO) 5.3 x10^3/uL (2.2-4.8); NEUTROPHILS % (AUTO) 65.6 % (42.0-75.0); PLATELET COUNT 327 X10^3/uL (150.0-450.0); RED BLOOD COUNT 4.48 X10^6/uL (3.5-5.4); RED CELL DISTRIBUTION WIDTH 13.9 % (11.6-16.5)
[2019-09-07 07:28] LABS: ALANINE AMINOTRANSFERASE 32 Units/L (12-78); ALBUMIN 3.3 g/dL (3.4-5.0); ALKALINE PHOSPHATASE 109 Units/L (46-116); ASPARTATE AMINO TRANSFERASE 19 Units/L (15-37); BLOOD UREA NITROGEN 13 mg/dL (7-18); CALCIUM 9.3 mg/dL (8.5-10.1); CARBON DIOXIDE 29.7 mmol/L (21-32); CHLORIDE 103 mmol/L (98-107); COR CA(FOR HYPOALB) 9.9 mg/dL (8.5-10.1); COR NA(FOR HYPERGLY) 138 mmol/L (136-145); CREATININE 0.79 mg/dL (0.55-1.02); SODIUM 138 mmol/L (136-145); TOTAL PROTEIN 7.5 g/dL (6.4-8.2); eGFR NON BLACK RACES > 60 (>60)
[2019-09-07] MEDS: ZANAFLEX PO PRN ×2 (11:31→22:43)
[2019-09-07] MEDS ORDERED: BENADRYL INJ 50 MG VIAL ONE (13:29)
[2019-09-07] MEDS ORDERED: XANAX PO ONE (13:30)
[2019-09-07] MEDS ORDERED: BENADRYL INJ 50 MG VIAL IV ONE (13:31)
[2019-09-07] MEDS ORDERED: NS 100 ML IV 100 ML IV ONE (14:13)
[2019-09-07] MEDS: MIRALAX POWDER (1 DOSE 17 G) PO SCH (15:34)
[2019-09-07] MEDS: LOVENOX INJ 40 MG SYR SC SCH (15:34)
[2019-09-07] MEDS: NICOTINE PATCH TD SCH (15:36)
[2019-09-07] MEDS: VALTREX PO SCH ×2 (15:37→20:26)
[2019-09-07] MEDS: ASPIRIN EC 81 MG PO SCH (15:38)
[2019-09-07] MEDS: ZESTRIL TAB 10 MG PO SCH (15:38)
[2019-09-07] MEDS: PLAVIX PO SCH (15:38)
[2019-09-07] MEDS: ULTRAM PO PRN (15:42)
[2019-09-07] MEDS: PROTONIX TAB 40 MG PO SCH (18:18)
--- NOTE | 2019-09-07 18:21 | MRI ---
MRI, ABDOMEN W/WO CONTRASTClinical indication: ADRENAL NODULES NOTED ON MRI L-SPINEProcedure: Multiplanar multi sequence MRI of the abdomen were obtained with and without the administration of intravenous contrast according to standard departmental protocol.Contrast: 16 cc of MultiHanceComparisons:Lumbar spine 09/05/2019Findings:MRI of the abdomen without contrast: No significant iron or fat deposition in the liver or spleen. No significant ascites.MRI of the abdomen with contrast: Liver and spleen are normal in size and morphology. No focal lesions. Gallbladder absent. No filling defects within the common bile duct. No ductal dilatation Pancreas demonstrates normal T1 signal. No pancreatic masses. 2.5 cm left adrenal nodule and 1.7 cm right adrenal nodule. These both appear to lose signal on out of phase sequences kidneys demonstrate normal cortical medullary differentiation. No hydronephrosis. No suspicious lymph nodes.Impression:1. Bilateral adrenal adenomas.Electronically signed by: JAMEEL SALVADOR (Sep 07, 2019 18:19:43)
[2019-09-07] MEDS ORDERED: LEXAPRO ONE (20:12)
[2019-09-07] MEDS: LEXAPRO PO SCH (20:26)
[2019-09-07] MEDS: ZOCOR TAB 20 MG PO SCH (20:26)
[2019-09-07] MEDS: COLACE CAP 100 MG PO SCH (20:26)
[2019-09-07] MEDS: XANAX PO PRN (20:27)
[2019-09-07] MEDS: MILK OF MAGNESIA PO SCH (20:29)
[2019-09-08] MEDS: DUONEB 0.5 MG/3 MG (3 mL) NEB SCH (05:37)
[2019-09-08] MEDS: NEURONTIN CAP 100 MG PO SCH (05:48)
[2019-09-08] MEDS: NORCO 5/325 MG TAB PO PRN ×2 (05:49→11:18)
[2019-09-08 06:49] LABS: ALANINE AMINOTRANSFERASE 33 Units/L (12-78); ALBUMIN 3.3 g/dL (3.4-5.0); ALKALINE PHOSPHATASE 114 Units/L (46-116); ASPARTATE AMINO TRANSFERASE 22 Units/L (15-37); BLOOD UREA NITROGEN 13 mg/dL (7-18); CARBON DIOXIDE 29.2 mmol/L (21-32); CHLORIDE 103 mmol/L (98-107); COR CA(FOR HYPOALB) 9.6 mg/dL (8.5-10.1); COR NA(FOR HYPERGLY) 140 mmol/L (136-145); CREATININE 0.79 mg/dL (0.55-1.02); SODIUM 139 mmol/L (136-145); TOTAL PROTEIN 7.6 g/dL (6.4-8.2); eGFR NON BLACK RACES > 60 (>60)
[2019-09-08 07:05] LABS: BASOPHILS # (AUTO) 0.1 X10^3/uL (0.0-0.1); BASOPHILS % (AUTO) 0.8 % (0.2-1.0); EOSINOPHILS # (AUTO) 0.1 x10^3/uL (0.0-0.2); HEMATOCRIT 38.4 % (36.0-47.0); LYMPHOCYTES # (AUTO) 1.8 X10^3/uL (1.3-2.9); LYMPHOCYTES % (AUTO) 20.8 % (21.0-51.0); MEAN CORPUSCULAR HEMOGLOBIN 29.3 pg (27.0-34.0); MEAN CORPUSCULAR HGB CONC 33.9 g/dL (33.0-35.0); MEAN CORPUSCULAR VOLUME 86.3 fL (80.0-100.0); MEAN PLATELET VOLUME 7.8 fL (7.4-11.0); MONOCYTES # (AUTO) 0.7 x10^3/uL (0.3-0.8); MONOCYTES % (AUTO) 8.1 % (0.0-13.0); NEUTROPHILS # (AUTO) 6.1 x10^3/uL (2.2-4.8); NEUTROPHILS % (AUTO) 69.3 % (42.0-75.0); PLATELET COUNT 346 X10^3/uL (150.0-450.0); RED BLOOD COUNT 4.45 X10^6/uL (3.5-5.4); RED CELL DISTRIBUTION WIDTH 13.8 % (11.6-16.5); WHITE BLOOD COUNT 8.7 X10^3/uL (3.6-10.0)
[2019-09-08] MEDS: PROTONIX TAB 40 MG PO SCH (09:41)
[2019-09-08] MEDS: ZESTRIL TAB 10 MG PO SCH (09:41)
[2019-09-08] MEDS: VALTREX PO SCH (09:41)
[2019-09-08] MEDS: PLAVIX PO SCH (09:42)
[2019-09-08] MEDS: LOVENOX INJ 40 MG SYR SC SCH (09:42)
[2019-09-08] MEDS: ASPIRIN EC 81 MG PO SCH (09:42)
[2019-09-08] MEDS: MIRALAX POWDER (1 DOSE 17 G) PO SCH (09:43)
[2019-09-08] MEDS: NICOTINE PATCH TD SCH (09:44)
[2019-09-08] MEDS: XANAX PO PRN (11:18)
[2019-09-08] MEDS: ZANAFLEX PO PRN (11:19)
[2019-09-08 11:24] VITALS: BP 119/64
--- NOTE | 2019-09-08 13:12 | PCM.PROG ---
Progress Note - Progress Note for Day of Date of Exam: 09/07/19 - Subjective Subjective: The patient is a 59-year-old white female who is back for admission from [facility] following a CVA with left upper and lower extremity weakness noted. The patient has been resumed medications including Aspirin, Guerita, Plavix, and blood pressure control. The patient suffers from severe lumbar spine degenerative disc disease and has been complaining of pain as well as pain to her left shoulder. We have resumed her pain medications as well. Pt to have MRI of lspine this am to evaluate the patients severity of the degenerative disc disease. The patient has had a PT/OT consult. She is reporting good oral intake as well. We started the patient on a low dose of Lexapro due to some anxiety and depression regarding her acute illness of the new CVA. Pt is having sputum production and diffuse lower expiratory wheezing, currently on duo nebs and iv atbx for bronchitis. Pt has new patch of vesicular lesion with erythematous base to right buttock. Pt started on gabapentin and po valtrex for shingles rash. Pt MRI of lspine revealed adrenal mass, MRI of abd with contrast ordered with premedication for treatment of anxiety. Pt family contacted about DME and plan of care for DC home. - Past Medical Family Social History Past Med/Fam/Surg Hx: No changes since H&P Allergies: Allergies Penicillins Allergy (Verified 04/21/19 14:02) - Review of Systems ROS: No change since H&P - Vital Signs and I&O's Vital Signs: Temperature 98.3 F Pulse Rate [Right Radial] 86 Pulse Rate [Radial] 81 Pulse Rate 87 Respiratory Rate 20 Blood Pressure [Right Arm] 119/64 Blood Pressure [Left Arm] 114/63 Blood Pressure 164/70 O2 Sat by Pulse Oximetry 95 Intake and Output: Intake & Output 09/06/19 09/07/19 09/08/19 09/09/19 11:59 11:59 11:59 11:59 Intake Total 1640 / 1640 1999 680 / 680 Balance 1640 / 1640 1999 680 / 680 - Physical Exam Oriented: Normal Eyes: Normal Ear: Normal Nose: Normal Throat: Normal Respiratory: Wheezes, Rhonchi Cardiovascular: Normal. negative: Edema : Normal Auscultation: Bowel Sounds: Normal Tenderness: Normal Skin: Rash, Vesicular, Red, Tender Musculoskeletal: Left, Shoulder, Back:Thoracic, Back:Lumbar, Tender Psychiatric: Anxiety Mood Description: Sad, Anxious Affect: Anxious Speech Pattern: Clear, Appropriate - Laboratory and Diagnostics Result Diagrams: 09/08/19 06:05 09/08/19 06:05 Labs: Laboratory WBC 8.7 X10^3/uL (3.6-10.0) 09/08/19 06:05 RBC 4.45 X10^6/uL (3.5-5.4) 09/08/19 06:05 Hgb 13.0 g/dL (12.0-16.0) 09/08/19 06:05 Hct 38.4 % (36.0-47.0) 09/08/19 06:05 MCV 86.3 fL (80.0-100.0) 09/08/19 06:05 MCH 29.3 pg (27.0-34.0) 09/08/19 06:05 MCHC 33.9 g/dL (33.0-35.0) 09/08/19 06:05 RDW 13.8 % (11.6-16.5) 09/08/19 06:05 Plt Count 346 X10^3/uL (150.0-450.0) 09/08/19 06:05 MPV 7.8 fL (7.4-11.0) 09/08/19 06:05 Neut % (Auto) 69.3 % (42.0-75.0) 09/08/19 06:05 Lymph % (Auto) 20.8 % (21.0-51.0) L 09/08/19 06:05 [place] % (Auto) 8.1 % (0.0-13.0) 09/08/19 06:05 Eos % (Auto) 1.0 % (0.9-2.9) 09/08/19 06:05 Baso % (Auto) 0.8 % (0.2-1.0) 09/08/19 06:05 Neut # (Auto) 6.1 x10^3/uL (2.2-4.8) H 09/08/19 06:05 Lymph # (Auto) 1.8 X10^3/uL (1.3-2.9) 09/08/19 06:05 [place] # (Auto) 0.7 x10^3/uL (0.3-0.8) 09/08/19 06:05 Eos # (Auto) 0.1 x10^3/uL (0.0-0.2) 09/08/19 06:05 Baso # (Auto) 0.1 X10^3/uL (0.0-0.1) 09/08/19 06:05 Absolute Nucleated RBC 0.0 /100WBC 09/08/19 06:05 Sodium 139 mmol/L (136-145) 09/08/19 06:05 Corrected Sodium 140 mmol/L (136-145) 09/08/19 06:05 Potassium 4.0 mmol/L (3.5-5.1) 09/08/19 06:05 Chloride 103 mmol/L (98-107) 09/08/19 06:05 Carbon Dioxide 29.2 mmol/L (21-32) 09/08/19 06:05 BUN 13 mg/dL (7-18) 09/08/19 06:05 Creatinine 0.79 mg/dL (0.55-1.02) 09/08/19 06:05 Est GFR (MDRD) Af Amer > 60 (>60) 09/08/19 06:05 Est GFR (MDRD) Non-Af > 60 (>60) 09/08/19 06:05 Glucose 133 mg/dL (65-99) H 09/08/19 06:05 Calcium 9.0 mg/dL (8.5-10.1) 09/08/19 06:05 Corrected Calcium 9.6 mg/dL (8.5-10.1) 09/08/19 06:05 Magnesium 2.1 mg/dL (1.7-2.9) 09/03/19 04:58 Total Bilirubin 0.40 mg/dL (0.2-1.0) 09/08/19 06:05 AST 22 Units/L (15-37) 09/08/19 06:05 ALT 33 Units/L (12-78) 09/08/19 06:05 Alkaline Phosphatase 114 Units/L (46-116) 09/08/19 06:05 Total Protein 7.6 g/dL (6.4-8.2) 09/08/19 06:05 Albumin 3.3 g/dL (3.4-5.0) L 09/08/19 06:05 Globulin 4.3 g/dL (2.5-4.5) 09/08/19 06:05 Albumin/Globulin Ratio 0.8 Ratio (1.1-2.1) L 09/08/19 06:05 - Plan (1) CVA (cerebral vascular accident) Status: Acute Plan: PT/OT. RESUME MEDICATION, STATIN, PLAVIX BP CONTROL. CXR ON ADMISSION, RESUME DIET TOLERATED. ASPIRATION PRECAUTIONS, RESP CONSULT. PAIN CONTROL, BOWEL REGIMEN (2) COPD (chronic obstructive pulmonary disease) with acute bronchitis Status: Acute (3) GERD (gastroesophageal reflux disease) Status: Chronic (4) Hyperlipidemia Status: Chronic (5) Hypertension Status: Chronic (6) Osteoarthritis Status: Chronic (7) Shingles Status: Acute
== END 2019-09-08 13:00 | disposition home or self-care (01) | DRG 65 ==
LOC: MED/SURG 20:59
PROVIDERS: ADMIT Internal Medicine; ATTEND Internal Medicine
DX: B02.8 Zoster with other complications; M51.36 Other intervertebral disc degeneration, lumbar region; I69.354 Hemiplegia and hemiparesis following cerebral infarction affecting left non-dominant side; F41.8 Other specified anxiety disorders; J20.9 Acute bronchitis, unspecified; J44.0 Chronic obstructive pulmonary disease with (acute) lower respiratory infection; K21.9 Gastro-esophageal reflux disease without esophagitis; Z79.01 Long term (current) use of anticoagulants; K59.09 Other constipation; I10 Essential (primary) hypertension; Z79.899 Other long term (current) drug therapy; I63.9 Cerebral infarction, unspecified; R53.1 Weakness; E78.2 Mixed hyperlipidemia; M19.90 Unspecified osteoarthritis, unspecified site; M25.512 Pain in left shoulder; J44.9 Chronic obstructive pulmonary disease, unspecified; R06.02 Shortness of breath; E27.9 Disorder of adrenal gland, unspecified
CPT/HCPCS: 36415; 71010; 71045; 72148; 74000; 74018; 74183; 80053; 83735; 85025; 94640; 94760; 97110; 97112; 97116; 97162; 97166; 97535; A4222; J1200; J1650; J7620

== ENCOUNTER 2025-06-07 09:47 | Inpatient (IN) ==
[2025-06-07 10:01] VITALS: BMI 25.5
--- NOTE | 2025-06-07 10:02 | EKG ---
Test Reason : dyspnea Blood Pressure : */* mmHG Vent. Rate : 91 BPM Atrial Rate : 91 BPM P-R Int : 128 ms QRS Dur : 86 ms QT Int : 386 ms P-R-T Axes : 66 9 48 degrees QTc Int : 474 ms Normal sinus rhythm Normal ECG No previous ECGs available Confirmed by Dusty Marin MD ([id number]) on 06/10/2025 8:05:57 AM Referred By: Confirmed By: Dusty Marin MD
[2025-06-07] MEDS ORDERED: DUONEB 0.5 MG/3 MG (3 mL) NEB ONE (10:05)
[2025-06-07] MEDS: ATIVAN INJ 2 MG VIAL IVP ONE (10:11)
[2025-06-07] MEDS: DUONEB 0.5 MG/3 MG (3 mL) NEB ONE (10:13)
[2025-06-07 10:16] LABS: ABG BASE EXCESS 1.3 mmol/L (-2.0-2.0); ABG HCO3 28.7 mmol/L (22-26); ABG PH 7.310 (7.35-7.45)
[2025-06-07 10:17] LABS: ABG ALLEN TEST POS; ABG OXYGEN SATURATION 69.0 % (90-100); ABG PCO2 57.0 mmHg (35.0-45.0); ABG PO2 40.0 mmHg (80.0-100.0)
[2025-06-07 10:28] LABS: MEAN PLATELET VOLUME 8.2 fL (7.4-11.0); RED CELL DISTRIBUTION WIDTH 14.1 % (11.6-16.5)
[2025-06-07 10:33] LABS: INR 0.98 (0.8-1.3)
[2025-06-07 10:41] LABS: COR NA(FOR HYPERGLY) 136 mmol/L (136-145); CREATININE 1.44 mg/dL (0.55-1.02); eGFR NON BLACK RACES 39 (>60)
--- NOTE | 2025-06-07 10:41 | DR.SOBA ---
HPI Time Seen Time Seen by Provider: 06/07/25 10:41 Primary Care Physician Primary Care Physician: Ayaz Quiroz Complaints Chief Complaint Doctors Comments: Patient fell and hit her right side on the tub and has had rib pain since then. Patient in respiratory distress when brought in by EMS. Patient is diaphoretic. Denies fever. Difficult to get history due to patient's condition at this time. Chief Complaint:: pt c/o falling a week ago and she c/o right upper abd pain and shoulder pain , pt is having laborded respirations and she is diaphoretic,br Self Treatment fo Chief Complaint: pt took a norco this am for pain COVID-19 Coronavirus risk:travel/contact w/high risk person: No Has patient experienced Coronavirus symptoms: No Source History Provided: Patient and EMS Mode of Arrival Mode of Arrival: EMS Timing Onset of Chief Complaint: 06/07/25 PMH PMH Past Medical History: Yes Past Medical History: Arthritis, COPD, CVA, Diabetes, Dyslipidemia and Hypertension Past Surgical History: No Surgical History: Appendectomy, Cholecystectomy, [employer] D[employer] Surgery, Ortho Surgery, Tonsillectomy and Other Family History History of Family Medical Conditions: Yes Family Medical History: Diabetes Mellitus, [place], Coronary Artery Disease and Hypertension Social History Does patient currently use any type of tobacco product: No Have you used tobacco products in the last 12 months: No Type of Tobacco Use: None Does any household member use tobacco: No Alcohol Use: Rarely Do you use any recreational Drugs:: No Lives With: Family Lives Where: Home Travel Risk Coronavirus risk:travel/contact w/high risk person: No Has patient experienced Coronavirus symptoms: No Infectious screening In the last 2 months have you had wt loss of >10#?: NO Have you had fever, night sweats or hemotysis?: No Have you traveled outside the country in the last 6 months?: No Isolation: Standard ROS Review of Systems Constitutional: negative Fever Eyes: No Symptoms Reported ENTM: No Symptoms Reported Respiratoy: Non-Productive Cough, Short of Breath and Wheezing Cardiovascular: No Symptoms Reported Gastrointestinal/Abdominal: No Symptoms Reported Genitourinary: No Symptoms Reported Neurological: No Symptoms Reported Musculoskeletal: See HPI Integumentary: No Symptoms Reported Hematologic/Lymphatic: No Symptoms Reported Endocrine: No Symptoms Reported Psychiatric: Anxiety All Other Systems: Reviewed and Negative Unable to Obtain Due To: Medical urgency (Difficult to obtain due to respiratory distress and patient's anxiety.) PE Vital Signs Vitals: Vital Signs Temperature 97.6 F Pulse Rate 79 Pulse Rate 84 Pulse Rate 82 Pulse Rate 80 Pulse Rate 82 Pulse Rate 82 Pulse Rate 90 Pulse Rate 90 Pulse Rate 91 Respiratory Rate 15 Respiratory Rate 16 Respiratory Rate 26 Respiratory Rate 28 Respiratory Rate 22 Respiratory Rate 29 Respiratory Rate 35 Respiratory Rate 25 Blood Pressure 142/65 Blood Pressure 126/91 Blood Pressure 161/75 Blood Pressure 147/70 O2 Sat by Pulse Oximetry 97 O2 Sat by Pulse Oximetry 96 O2 Sat by Pulse Oximetry 91 O2 Sat by Pulse Oximetry 96 O2 Sat by Pulse Oximetry 96 O2 Sat by Pulse Oximetry 87 O2 Sat by Pulse Oximetry 85 General Limitations: No Limitations General Appearance: Alert and In No Apparent Distress Head Head Exam: Normal Inspection Eyes Eye exam: Normal Appearance ENT ENT Exam: Normal Exam Neck Neck Exam: Normal Inspection Chest Chest Inspection: Normal Inspection Respiratory Respiratory Exam: Accessory Muscle Use, Chest Wall Tenderness (Right ribs) and Respiratory Distress Respiratory Exam: Bilateral: Wheezing Cardiovascular Cardiovascular Exam: Normal Rhythm and Tachycardia Abdominal Exam Abdominal Exam: Normal Inspection, Normal Bowel Sounds, Soft and Tenderness (Right upper quadrant); negative Distention, Guarding, Rebound, Rigidity, Organomegaly or Ascites Extremities Extremities Exam: Normal Inspection Back Back Exam: Normal Inspection Neurologic Neurological Exam: Alert and Oriented X3 Psychiatric Psychiatric Exam: Normal Affect and Normal Mood Skin Skin Exam: Warm, Dry, Intact and Normal Color COURSE Treatment Treatment: Patient isDiscussed results of workup with patient and family. Patient's daughter chain smoker and since she had the fall she has been laying in bed and not moved much. Consultation Consultation Comments: Discussed case with Dr. Carr he is agreeable to admission Critical Care Notes Total Time (mins): 42 Critical Diagnosis: Pneumonia, hypoxia, respiratory distress, rib fractures Critical Interventions: Time spent examining patient, ordering and reviewing workup as well as educating family. Breathing treatments given as well as steroids. IV fluids and antibiotics given. Patient improved to stable condition and being admitted to hospital. Time spent coordinating care for admission with hospitalist. ROR Labs Reviewed Laboratory Results Reviewed?: Yes 06/07/25 10:07 06/07/25 10:07 Laboratory: WBC 12.7 X10^3/uL (3.6-10.0) H 06/07/25 10:07 RBC 4.53 X10^6/uL (3.5-5.4) 06/07/25 10:07 Hgb 12.7 g/dL (12.0-16.0) 06/07/25 10:07 Hct 37.6 % (36.0-47.0) 06/07/25 10:07 MCV 83.0 fL (80.0-100.0) 06/07/25 10:07 MCH 27.9 pg (27.0-34.0) 06/07/25 10:07 MCHC 33.7 g/dL (33.0-35.0) 06/07/25 10:07 RDW 14.1 % (11.6-16.5) 06/07/25 10:07 Plt Count 362 X10^3/uL (150.0-450.0) 06/07/25 10:07 MPV 8.2 fL (7.4-11.0) 06/07/25 10:07 Neut % (Auto) 63.6 % (42.0-75.0) 06/07/25 10:07 Lymph % (Auto) 27.6 % (21.0-51.0) 06/07/25 10:07 [place] % (Auto) 7.3 % (0.0-13.0) 06/07/25 10:07 Eos % (Auto) 0.9 % (0.9-2.9) 06/07/25 10:07 Baso % (Auto) 0.6 % (0.2-1.0) 06/07/25 10:07 Neut # (Auto) 8.1 x10^3/uL (2.2-4.8) H 06/07/25 10:07 Lymph # (Auto) 3.5 X10^3/uL (1.3-2.9) H 06/07/25 10:07 [place] # (Auto) 0.9 x10^3/uL (0.3-0.8) H 06/07/25 10:07 Eos # (Auto) 0.1 x10^3/uL (0.0-0.2) 06/07/25 10:07 Baso # (Auto) 0.1 X10^3/uL (0.0-0.1) 06/07/25 10:07 Absolute Nucleated RBC 0.0 /100WBC 06/07/25 10:07 PT 13.1 SECONDS (11.8-14.3) 06/07/25 10:07 INR Target Range - 06/07/25 10:07 INR 0.98 (0.8-1.3) 06/07/25 10:07 APTT 30.7 SECONDS (22.9-36.5) 06/07/25 10:07 PTT Comment - 06/07/25 10:07 D-Dimer 0.54 ug/ml (0.0-0.57) 06/07/25 10:07 Sample Site Rrad 06/07/25 09:44 ABG pH 7.310 (7.35-7.45) L 06/07/25 09:44 ABG pCO2 57.0 mmHg (35.0-45.0) H* 06/07/25 09:44 ABG pO2 40.0 mmHg (80.0-100.0) L* 06/07/25 09:44 ABG HCO3 28.7 mmol/L (22-26) H 06/07/25 09:44 ABG O2 Saturation 69.0 % (90-100) L* 06/07/25 09:44 ABG Base Excess 1.3 mmol/L (-2.0-2.0) 06/07/25 09:44 Arpit Test Pos 06/07/25 09:44 A-a Gradient 38.0 mmHg 06/07/25 09:44 FiO2 21.0 06/07/25 09:44 Blood Gas Comments Pt lorena well elj cdn 06/07/25 09:44 Sodium 133 mmol/L (136-145) L 06/07/25 10:07 Corrected Sodium 136 mmol/L (136-145) 06/07/25 10:07 Potassium 3.7 mmol/L (3.5-5.1) 06/07/25 10:07 Chloride 96 mmol/L (98-107) L 06/07/25 10:07 Carbon Dioxide 29.0 mmol/L (21-32) 06/07/25 10:07 BUN 29 mg/dL (7-18) H 06/07/25 10:07 Creatinine 1.44 mg/dL (0.55-1.02) H 06/07/25 10:07 Est GFR (MDRD) Af Amer 47 (>60) L 06/07/25 10:07 Est GFR (MDRD) Non-Af 39 (>60) L 06/07/25 10:07 Glucose 228 mg/dL (65-99) H 06/07/25 10:07 Lactic Acid 0.9 mmol/L (0.4-2.0) 06/07/25 10:07 Calcium 9.7 mg/dL (8.5-10.1) 06/07/25 10:07 Corrected Calcium TNP 06/07/25 10:07 Total Bilirubin 0.40 mg/dL (0.2-1.0) 06/07/25 10:07 AST 16 Units/L (15-37) 06/07/25 10:07 ALT 24 Units/L (12-78) 06/07/25 10:07 Alkaline Phosphatase 134 Units/L (46-116) H 06/07/25 10:07 Creatine Kinase 238 Units/L (26-192) H 06/07/25 10:07 Troponin I High Sens 6.8 ng/L (4.0-60.0) 06/07/25 10:07 B-Natriuretic Peptide 24.5 pg/mL (0-79) 06/07/25 10:07 Total Protein 8.6 g/dL (6.4-8.2) H 06/07/25 10:07 Albumin 4.2 g/dL (3.4-5.0) 06/07/25 10:07 Globulin 4.4 g/dL (2.5-4.5) 06/07/25 10:07 Albumin/Globulin Ratio 1.0 Ratio (1.1-2.1) L 06/07/25 10:07 Other Results Comments: Name: Sushma Mendosa : 1960 Sex: F Location: ER Order Number(s): [id number] Procedure(s):CTA, CHEST Ordering Physician: Aleksey Magdaleno Primary Care: Atul Jacome MD Service Date: 06/07/25 Service Time: 1014 EXAM: CTA, CHEST HISTORY: s/p fall on rt side x a rew weeks ago, c/o sob, rt rib and ruq pain please look at rt ribs; COMPARISON: CT abdomen pelvis same day TECHNIQUE: CT angiogram of the chest obtained with IV contrast. 3D MIPS images obtained and reviewed. Dose reduction techniques including Automated Exposure Control (AEC) and adjustment of mA and kV were utilized. FINDINGS: No pneumothorax. Trace right-sided pleural effusion. Scattered ground-glass opacities and consolidation in the lungs. Emphysema in the lungs with an apical predominance. No evidence of pulmonary embolism. The heart is normal in size. No evidence of pericardial disease. Coronary and aortic calcifications. No mediastinal adenopathy. Right 6-8 rib fractures. Multilevel degenerative changes in the visualized spine. Abdominal findings discussed on CT abdomen and pelvis report same day. IMPRESSION: No evidence of pulmonary embolism. Trace right pleural effusion. Scattered ground-glass opacities in the lungs which could reflect scarring, atelectasis, or pneumonia. Right 6, 7, 8 rib fractures. THIS IS AN ELECTRONICALLY VERIFIED FINAL REPORT 06/07/2025 11:33 AM - Electronically signed by Ant Fuentes MD Name: Sushma Mendosa : 1960 Sex: F Location: ER Order Number(s): [id number] Procedure(s):CT ABDOMEN/PELVIS WITH CON Ordering Physician: Aleksey Magdaleno Primary Care: Atul Jacome MD Service Date: 06/07/25 Service Time: 948 EXAM: ABDCMEN/PELVIS WITH CON HISTORY: s/p fall on rt side x a rew weeks ago, c/o rt rib and ruq pain ; COMPARISON: CT chest same day; 09/07/2019 TECHNIQUE: CT of the abdomen and pelvis obtained with IV contrast. Dose reduction techniques including Automated Exposure Control (AEC) and adjustment of mA and kV were utilized. FINDINGS: Thoracic findings discussed on CT chest report same day. No acute osseous abnormality. Multilevel degenerative changes in the visualized spine. The liver, spleen, pancreas, bilateral adrenal glands, and bilateral kidneys demonstrate no acute process. Prior cholecystectomy. Similar bilateral adrenal lesions, previously described as adenomas. No evidence of bowel obstruction. The appendix is not definitively visualized. No secondary signs of appendicitis. Moderate colonic stool. The bladder is unremarkable. The uterus is present. No free air or fluid. Nonaneurysmal aorta. Scattered vascular calcifications. IMPRESSION: No acute traumatic findings in the abdomen or pelvis. THIS IS AN ELECTRONICALLY VERIFIED FINAL REPORT 06/07/2025 11:37 AM - Electronically signed by Ant Fuentes MD EKG Rate: 91 [place]: Normal Rhythm: NSR Block: None Hypertrophy: None ST: Normal Opioid Opioid Risk Tool Age (Vladimir box if 16-45): No History of Preadolescent Sexual Abuse: No Total: 0 Total Score Risk Category: Low Risk Copyright: [facility] predicting aberrant behaviors Discharge Plan Diagnosis Discharge Problem: Pneumonia involving right lung, Acute respiratory distress, Hypoxia, Multiple rib fractures, Dehydration Discharge Plan Patient Disposition: ADMITTED INPATIENT Condition: Stable Prescriptions: No Action lisinopril-hydrochlorothiazide 20-25 mg tablet 1 tab PO QDAY Qty: 90 3RF aspirin 81 mg tablet,delayed release (DR/EC) 81 mg PO ONCE Qty: 90 3RF citalopram 40 mg tablet 40 mg PO QDAY Qty: 90 3RF clonazepam 1 mg tablet 1 mg PO TID MDD 3 mg PRN (Reason: anxiety) 30 Days Qty: 90 0RF gabapentin 400 mg capsule 400 mg PO TID Qty: 270 3RF tramadol 50 mg tablet 50 mg PO Q6H MDD 4 per 24 Hours PRN (Reason: pain, moderate) 30 Days Qty: 120 0RF clopidogrel 75 mg tablet 75 mg PO QDAY Qty: 90 3RF dicyclomine 20 mg tablet 20 mg PO QID Qty: 60 2RF hydrocodone-acetaminophen 7.5-325 mg tablet 1 tab PO Q8H MDD 3 per 24 Hours PRN (Reason: pain) 30 Days Qty: 30 0RF diazepam [Valium] 5 mg tablet 5 mg PO BID MDD 2 per 24 Hours PRN (Reason: anxiety) 30 Days Qty: 60 0RF ketorolac 10 mg tablet 10 mg PO Q6H PRN (Reason: pain) 5 Days Qty: 20 0RF Rx Instructions: maximum total duration of 5 days from all oral, intranasal, or parenteral formulations promethazine 50 mg tablet 50 mg PO Q6H PRN (Reason: nausea and vomiting) Qty: 30 2RF quetiapine 100 mg tablet 100 mg PO QHS baclofen 20 mg tablet 20 mg PO QHS pantoprazole 40 mg tablet,delayed release (DR/EC) 40 mg PO QDAY rosuvastatin 20 mg tablet 20 mg PO QHS Health Concerns: Post Hospitalization: new medications and changes needed to prevent readmission or further decline. Pt educated and given instructions on all concerns. Plan of Treatment: Continue with present treatment and follow up plan. Pt is to keep follow up appointment as instructed and take medications as ordered. Orders to Discharge Patient Discharge Orders: Transfer (Routine); Ordered 06/07/25 Ordered By: Aleksey Magdaleno Follow ups/Referrals Follow ups/Referrals: Atul Jacome MD [Primary Care Provider, MEDICAL] - 3 days Instructions Stand Alone Forms: Find Help Web Site, Post Hospital Follow Up Care Print Language: YORUBA
[2025-06-07] MEDS: NS 1,000 ML IV 1,000 ML IV ONE (11:18)
[2025-06-07] MEDS: OMNIPAQUE 350 mg/mL 100 mL BTL IVP NR (11:22)
--- NOTE | 2025-06-07 11:37 | CT ---
EXAM: CTA, CHEST HISTORY: s/p fall on rt side x a rew weeks ago, c/o sob, rt rib and ruq pain please look at rt ribs; COMPARISON: CT abdomen pelvis same day TECHNIQUE: CT angiogram of the chest obtained with IV contrast. 3D MIPS images obtained and reviewed. Dose reduction techniques including Automated Exposure Control (AEC) and adjustment of mA and kV were utilized. FINDINGS: No pneumothorax. Trace right-sided pleural effusion. Scattered ground-glass opacities and consolidation in the lungs. Emphysema in the lungs with an apical predominance. No evidence of pulmonary embolism. The heart is normal in size. No evidence of pericardial disease. Coronary and aortic calcifications. No mediastinal adenopathy. Right 6-8 rib fractures. Multilevel degenerative changes in the visualized spine. Abdominal findings discussed on CT abdomen and pelvis report same day. IMPRESSION: No evidence of pulmonary embolism. Trace right pleural effusion. Scattered ground-glass opacities in the lungs which could reflect scarring, atelectasis, or pneumonia. Right 6, 7, 8 rib fractures. THIS IS AN ELECTRONICALLY VERIFIED FINAL REPORT 06/07/2025 11:33 AM - Electronically signed by Ant Fuentes MD
--- NOTE | 2025-06-07 11:40 | CT ---
EXAM: ABDCMEN/PELVIS WITH CON HISTORY: s/p fall on rt side x a rew weeks ago, c/o rt rib and ruq pain ; COMPARISON: CT chest same day; 09/07/2019 TECHNIQUE: CT of the abdomen and pelvis obtained with IV contrast. Dose reduction techniques including Automated Exposure Control (AEC) and adjustment of mA and kV were utilized. FINDINGS: Thoracic findings discussed on CT chest report same day. No acute osseous abnormality. Multilevel degenerative changes in the visualized spine. The liver, spleen, pancreas, bilateral adrenal glands, and bilateral kidneys demonstrate no acute process. Prior cholecystectomy. Similar bilateral adrenal lesions, previously described as adenomas. No evidence of bowel obstruction. The appendix is not definitively visualized. No secondary signs of appendicitis. Moderate colonic stool. The bladder is unremarkable. The uterus is present. No free air or fluid. Nonaneurysmal aorta. Scattered vascular calcifications. IMPRESSION: No acute traumatic findings in the abdomen or pelvis. THIS IS AN ELECTRONICALLY VERIFIED FINAL REPORT 06/07/2025 11:37 AM - Electronically signed by Ant Fuentes MD
[2025-06-07] MEDS: LEVAQUIN PREMIX IV 750 MG 750 MG/150 ML BAG IV ONE (11:55)
[2025-06-07] MEDS: LEVAQUIN PREMIX IV 750 MG 750 MG/150 ML BAG IV SCH (12:00)
[2025-06-07] MEDS ORDERED: ZOFRAN INJ 4 MG VIAL IVP PRN (12:38)
[2025-06-07] MEDS ORDERED: TYLENOL 325 MG TAB PO PRN (12:38)
[2025-06-07] MEDS ORDERED: CONSULT PHARMACY - POTASSIUM & MAGNESIUM XX SCH (13:00)
[2025-06-07] MEDS: NEURONTIN CAP 400 MG PO SCH (13:34)
[2025-06-07] MEDS: ROBITUSSIN DM PO SCH (13:35)
[2025-06-07] MEDS: NS 1,000 ML IV 1,000 ML IV SCH (13:35)
[2025-06-07] MEDS: ASPIRIN EC 81 MG PO SCH (13:51)
[2025-06-07] MEDS: K-DUR TAB 20 MEQ PO ONE (13:51)
[2025-06-07] MEDS: MORPHINE SULFATE INJ 2 MG INJ IVP PRN (13:57)
[2025-06-07] MEDS: NORCO 5/325 MG TAB PO PRN (15:21)
[2025-06-07] MEDS: DUONEB 0.5 MG/3 MG (3 mL) NEB SCH (16:21)
[2025-06-07] MEDS: NovoLIN R (or HumuLIN R) SUBCUT PRN (17:30)
[2025-06-07] MEDS: NORCO 10/325 TAB PO PRN (17:31)
[2025-06-07] MEDS: PULMICORT NEB TX 0.5 MG NEB SCH (20:55)
[2025-06-07] MEDS: NICOTINE PATCH TD SCH (21:11)
[2025-06-07] MEDS: LIORESAL PO SCH (21:11)
[2025-06-07] MEDS: CRESTOR TAB 10 MG PO SCH (21:11)
[2025-06-07] MEDS: KLONOPIN TAB 1 MG PO PRN (21:11)
[2025-06-07] MEDS: SNACK - Diabetic Appropriate PO SCH (21:25)
[2025-06-08 05:10] LABS: MEAN PLATELET VOLUME 8.5 fL (7.4-11.0); RED CELL DISTRIBUTION WIDTH 14.2 % (11.6-16.5)
[2025-06-08 05:18] LABS: COR NA(FOR HYPERGLY) 141 mmol/L (136-145); CREATININE 1.30 mg/dL (0.55-1.02); eGFR NON BLACK RACES 44 (>60)
--- NOTE | 2025-06-08 06:59 | RAD ---
EXAM: CHEST, 1 VIEW HISTORY: PNA, SOB ; HTN, DM, CVA, COPD COMPARISON: June 07, 2025 CT FINDINGS: Right lower lobe subsegmental atelectatic changes. Aortic arch arterial plaque. Anterior cervical fusion. No acute CHF No pneumothorax . No effusion. Heart size is normal. The bones are unremarkable. IMPRESSION: 1. No acute cardiopulmonary abnormality. Right rib fractures are better seen by CT imaging THIS IS AN ELECTRONICALLY VERIFIED FINAL REPORT 06/08/2025 6:56 AM - Electronically signed by Felipa Franco MD
[2025-06-08] MEDS: VISBIOME PROBIOTIC CAP 112.5 B or equivalent PO SCH (09:22)
[2025-06-08] MEDS: ZESTORETIC 20/25 MG PO SCH (09:23)
[2025-06-08] MEDS: ULTRAM PO PRN (09:23)
[2025-06-08] MEDS: CELEXA PO SCH (09:23)
[2025-06-08] MEDS: PLAVIX PO SCH (09:23)
[2025-06-08] MEDS: PROTONIX TAB 40 MG PO SCH (09:23)
--- NOTE | 2025-06-08 11:14 | DR.H&P ---
H&P History & Physical for Day of: H&P Date: 06/08/25 Chief Complaint Chief Complaint: dyspnea, fall History of Present Illness History of Present Illness: Patient is a 65-year-old female with a past medical history of CVA, tobacco use, COPD, type 2 diabetes, hypertension and hyperlipidemia presented with shortness of breath, respiratory distress and a recent fall. Patient reports having a fall a week ago and hit the right side of her chest. ER workup included imaging chest CTA which showed fractures of ribs 6 and 9 and bilateral ground glass opacities. ABG was consistent with hypoxia. She is currently on 4 L nasal cannula. She was started on IV antibiotics, steroids and cultures were sent. She reports feeling slightly better. Her chest wall pain has been controlled with current medications. Labs/imaging reviewed: - WBC 14.2 hemoglobin 10.9 potassium 4.7 creatinine 1.30 - ABG reviewed - AIT pending - CTA chest reviewed Plan: Wean O2 as tolerated, keep sats greater than 92%. Continue bronchodilators and IS. Continue IV antibiotics. Follow pending cultures. Add Solu-Medrol. Resume home medications. Replace electrolytes as per protocol. Continue pain control. Ambulate as tolerated. Monitor a.m. labs and imaging. Time spent for clinical assessment, reviewing labs/imaging, physical exam, decision making and documentation greater than 45 mins. Past Medical History Past Medical History: Arthritis, COPD, CVA, Diabetes, Dyslipidemia and Hypertension Past Surgical History Surgical History: Appendectomy, Cholecystectomy, [employer] Surgery, Ortho Surgery, Tonsillectomy and Other Family History Family Medical History: Diabetes Mellitus, [place], Coronary Artery Disease and Hypertension Social History Does patient currently use any type of tobacco product: Yes Have you used tobacco products in the last 12 months: Yes Type of Tobacco Use: Cigarettes How many years tobacco product used: 45 Does any household member use tobacco: No Alcohol Use: None Drug Use: None Medications Home Medications: Home Medications Medication Instructions Recorded Confirmed Type baclofen 20 mg tablet 20 mg PO QHS Muscle Spasms 1 08/07/24 06/07/25 History pantoprazole 40 mg tablet,delayed 40 mg PO QDAY Acid R eflux 06/07/25 06/07/25 History release quetiapine 100 mg tablet 100 mg PO QHS Irritability 1 08/07/24 06/07/25 History rosuvastatin 20 mg tablet 20 mg PO QHS High Cholestere ramiro 06/07/25 06/07/25 History Allergies Allergies Allergy/AdvReac Type Severity Reaction Status Date / Time Penicillins Allergy Unknown Verified 06/07/25 11:48 Labs 06/08/25 04:43 06/08/25 04:43 Labs: Laboratory WBC 14.2 X10^3/uL (3.6-10.0) H 06/08/25 04:43 RBC 3.88 X10^6/uL (3.5-5.4) 06/08/25 04:43 Hgb 10.9 g/dL (12.0-16.0) L 06/08/25 04:43 Hct 32.6 % (36.0-47.0) L 06/08/25 04:43 MCV 83.9 fL (80.0-100.0) 06/08/25 04:43 MCH 28.1 pg (27.0-34.0) 06/08/25 04:43 MCHC 33.5 g/dL (33.0-35.0) 06/08/25 04:43 RDW 14.2 % (11.6-16.5) 06/08/25 04:43 Plt Count 292 X10^3/uL (150.0-450.0) 06/08/25 04:43 MPV 8.5 fL (7.4-11.0) 06/08/25 04:43 Neut % (Auto) 87.5 % (42.0-75.0) H 06/08/25 04:43 Lymph % (Auto) 6.2 % (21.0-51.0) L 06/08/25 04:43 [place] % (Auto) 6.2 % (0.0-13.0) 06/08/25 04:43 Eos % (Auto) 0.0 % (0.9-2.9) L 06/08/25 04:43 Baso % (Auto) 0.1 % (0.2-1.0) L 06/08/25 04:43 Neut # (Auto) 12.5 x10^3/uL (2.2-4.8) H 06/08/25 04:43 Lymph # (Auto) 0.9 X10^3/uL (1.3-2.9) L 06/08/25 04:43 [place] # (Auto) 0.9 x10^3/uL (0.3-0.8) H 06/08/25 04:43 Eos # (Auto) 0.0 x10^3/uL (0.0-0.2) 06/08/25 04:43 Baso # (Auto) 0.0 X10^3/uL (0.0-0.1) 06/08/25 04:43 Absolute Nucleated RBC 0.0 /100WBC 06/08/25 04:43 PT 13.1 SECONDS (11.8-14.3) 06/07/25 10:07 INR Target Range - 06/07/25 10:07 INR 0.98 (0.8-1.3) 06/07/25 10:07 APTT 30.7 SECONDS (22.9-36.5) 06/07/25 10:07 PTT Comment - 06/07/25 10:07 D-Dimer 0.54 ug/ml (0.0-0.57) 06/07/25 10:07 Sample Site Rrad 06/07/25 09:44 ABG pH 7.310 (7.35-7.45) L 06/07/25 09:44 ABG pCO2 57.0 mmHg (35.0-45.0) H* 06/07/25 09:44 ABG pO2 40.0 mmHg (80.0-100.0) L* 06/07/25 09:44 ABG HCO3 28.7 mmol/L (22-26) H 06/07/25 09:44 ABG O2 Saturation 69.0 % (90-100) L* 06/07/25 09:44 ABG Base Excess 1.3 mmol/L (-2.0-2.0) 06/07/25 09:44 Arpit Test Pos 06/07/25 09:44 A-a Gradient 38.0 mmHg 06/07/25 09:44 FiO2 21.0 06/07/25 09:44 Blood Gas Comments Pt lorena well elj cdn 06/07/25 09:44 Sodium 137 mmol/L (136-145) 06/08/25 04:43 Corrected Sodium 141 mmol/L (136-145) 06/08/25 04:43 Potassium 4.7 mmol/L (3.5-5.1) 06/08/25 04:43 Chloride 100 mmol/L (98-107) 06/08/25 04:43 Carbon Dioxide 28.9 mmol/L (21-32) 06/08/25 04:43 BUN 24 mg/dL (7-18) H 06/08/25 04:43 Creatinine 1.30 mg/dL (0.55-1.02) H 06/08/25 04:43 Est GFR (MDRD) Af Amer 53 (>60) L 06/08/25 04:43 Est GFR (MDRD) Non-Af 44 (>60) L 06/08/25 04:43 Glucose 255 mg/dL (65-99) H 06/08/25 04:43 POC Glucose (mg/dL) 229 mg/dL (65-99) H 06/08/25 05:10 Hemoglobin A1c 7.6 % 06/07/25 10:07 Lactic Acid 0.9 mmol/L (0.4-2.0) 06/07/25 10:07 Calcium 9.1 mg/dL (8.5-10.1) 06/08/25 04:43 Corrected Calcium TNP 06/08/25 04:43 Magnesium 2.2 mg/dL (2.0-2.9) 06/07/25 10:07 Total Bilirubin 0.20 mg/dL (0.2-1.0) 06/08/25 04:43 AST 16 Units/L (15-37) 06/08/25 04:43 ALT 18 Units/L (12-78) 06/08/25 04:43 Alkaline Phosphatase 114 Units/L (46-116) 06/08/25 04:43 Creatine Kinase 238 Units/L (26-192) H 06/07/25 10:07 Troponin I High Sens 6.8 ng/L (4.0-60.0) 06/07/25 10:07 B-Natriuretic Peptide 24.5 pg/mL (0-79) 06/07/25 10:07 Total Protein 7.5 g/dL (6.4-8.2) 06/08/25 04:43 Albumin 3.5 g/dL (3.4-5.0) 06/08/25 04:43 Globulin 4.0 g/dL (2.5-4.5) 06/08/25 04:43 Albumin/Globulin Ratio 0.9 Ratio (1.1-2.1) L 06/08/25 04:43 Review of Systems Constitutional: Weakness Eyes: No Symptoms Reported ENT: No Symptoms Reported Respiratory: Shortness of Breath and Pleuritic Pain Cardiovascular: No Symptoms Reported Gastrointestinal: No Symptoms Reported Genitourinary: No Symptoms Reported Musculoskeletal: Other (right chest pain) Skin: No Symptoms Reported Neurological: No Symptoms Reported Physical Exam Vital Signs: Vital Signs Temperature 97.6 F Temperature 97.9 F Pulse Rate [Left Brachial] 84 Pulse Rate [Left Brachial] 81 Pulse Rate 82 Respiratory Rate 17 Respiratory Rate 16 Respiratory Rate 16 Respiratory Rate 20 Respiratory Rate 20 Respiratory Rate 18 Blood Pressure [Left Arm] 129/60 Blood Pressure [Left Arm] 128/62 O2 Sat by Pulse Oximetry 92 O2 Sat by Pulse Oximetry 93 O2 Sat by Pulse Oximetry 90 Oriented: Normal Respiratory: Diminished Throughout and RLL Exp. Wheeze Cardiovascular: Normal Auscultation: Bowel Sounds: Normal Palpation: Normal Tenderness: Normal Skin: Normal Musculoskeletal: Right, Back:Paraspinous and Tender Psychiatric: Normal Mood Description: Calm Affect: Normal Speech Pattern: Clear and Appropriate Assessment/Plan (1) Multiple rib fractures: Qualifiers: Encounter type: initial encounter Fracture type: closed Laterality: r ight Qualified Code(s): S22.41XA - Multiple fractures of ribs, right side, initial encounter for closed fracture Status: Acute (2) Hypoxia: Status: Acute (3) Pneumonia: Qualifiers: Pneumonia type: due to unspecified organism Laterality: bilateral Lung location: unspecified part of lung Qualified Code(s): J18.9 - Pneumonia, unspecified organism Status: Acute (4) GERD (gastroesophageal reflux disease): Qualifiers: Esophagitis presence: esophagitis presence not specified Qualified Code(s): K21.9 - Gastro-esophageal reflux disease without esophagitis Status: Chronic (5) Osteoarthritis: Qualifiers: Osteoarthritis location: multiple joints Osteoarthritis type: primary Qualified Code(s): M15.0 - Primary generalized (osteo)arthritis Status: Chronic (6) COPD (chronic obstructive pulmonary disease) with acute bronchitis: Status: Chronic Review H&P Reviewed: Yes Patient was examined?: Yes
[2025-06-08] MEDS: NS 500 ML IV 500 ML IV ONE (19:58)
[2025-06-08] MEDS: ATIVAN INJ 2 MG VIAL ONE (19:58)
[2025-06-08] MEDS: OMNIPAQUE 350 mg/mL 100 mL BTL 100 ML ONE (19:58)
[2025-06-09] MEDS: TUSSIONEX PENNKINETIC SUSP PO PRN (00:19)
[2025-06-09] MEDS ORDERED: COLACE CAP 100 MG PO PRN (04:48)
[2025-06-09] MEDS ORDERED: MILK OF MAGNESIA PO PRN (04:48)
[2025-06-09 06:41] LABS: MEAN PLATELET VOLUME 8.7 fL (7.4-11.0); RED CELL DISTRIBUTION WIDTH 14.1 % (11.6-16.5)
[2025-06-09 06:45] LABS: COR CA(FOR HYPOALB) 9.3 mg/dL (8.5-10.1); COR NA(FOR HYPERGLY) 140 mmol/L (136-145); CREATININE 1.17 mg/dL (0.55-1.02); eGFR NON BLACK RACES 50 (>60)
[2025-06-09 07:14] LABS: PLATELET MORPHOLOGY COMMENT NORMAL (NORMAL)
--- NOTE | 2025-06-09 11:10 | PCM.PROG ---
Progress Note Progress Note for Day of Date of Exam: 06/09/25 Subjective Subjective: Patient seen at bedside, no acute events overnight. She is currently admitted for rib fracture and pneumonia. She remains on 4 L nasal cannula. She does report having more cough. She is currently on IV antibiotics and steroids. Labs/imaging reviewed: - WBC 12.1 hemoglobin 10 potassium 4.1 creatinine 1.17 Plan: Wean O2 as tolerated to keep sats greater than 92%. Continue bronchodilators, flutter valve and I-S. Encourage patient to ambulate as tolerated. Continue IV antibiotics and steroids. Continue home medications. Replace electrolytes as per protocol. Monitor a.m. labs and imaging. Time spent for clinical assessment, reviewing labs/imaging, physical exam, decision making and documentation greater than 45 mins. Past Medical Family Social History Allergies: Allergies Penicillins Allergy (Unknown, Verified 06/07/25 11:48) Vital Signs and I&O's Vital Signs: Vital Signs Temperature 97.6 F Temperature 98.0 F Pulse Rate [Left Brachial] 82 Pulse Rate [Left Brachial] 75 Pulse Rate 86 Pulse Rate 95 Respiratory Rate 16 Respiratory Rate 16 Respiratory Rate 16 Respiratory Rate 20 Respiratory Rate 20 Respiratory Rate 20 Blood Pressure [Left Arm] 116/58 Blood Pressure [Left Arm] 106/55 O2 Sat by Pulse Oximetry 94 O2 Sat by Pulse Oximetry 91 O2 Sat by Pulse Oximetry 94 O2 Sat by Pulse Oximetry 90 Intake and Output: Intake & Output 06/06/25 06/07/25 06/08/25 06/09/25 23:59 23:59 23:59 23:59 Intake Total 1718 3121 / 3121 408 / 408 Balance 1718 3121 / 3121 408 / 408 Physical Exam Oriented: Normal Respiratory: Generalized and Diminished Cardiovascular: Normal Auscultation: Bowel Sounds: Normal Palpation: Normal Tenderness: Normal Skin: Normal Musculoskeletal: Right, Back:Paraspinous and Tender Psychiatric: Normal Mood Description: Calm Affect: Normal Speech Pattern: Clear and Appropriate Laboratory and Diagnostics 06/09/25 05:15 06/09/25 05:15 Labs: Laboratory WBC 12.1 X10^3/uL (3.6-10.0) H 06/09/25 05:15 RBC 3.51 X10^6/uL (3.5-5.4) 06/09/25 05:15 Hgb 10.0 g/dL (12.0-16.0) L 06/09/25 05:15 Hct 29.4 % (36.0-47.0) L 06/09/25 05:15 MCV 83.8 fL (80.0-100.0) 06/09/25 05:15 MCH 28.4 pg (27.0-34.0) 06/09/25 05:15 MCHC 33.9 g/dL (33.0-35.0) 06/09/25 05:15 RDW 14.1 % (11.6-16.5) 06/09/25 05:15 Plt Count 254 X10^3/uL (150.0-450.0) 06/09/25 05:15 Plt Count Comment Adequate (ADEQUATE) 06/09/25 05:15 MPV 8.7 fL (7.4-11.0) 06/09/25 05:15 Neut % (Auto) 90.3 % (42.0-75.0) H 06/09/25 05:15 Lymph % (Auto) 6.7 % (21.0-51.0) L 06/09/25 05:15 [place] % (Auto) 2.9 % (0.0-13.0) 06/09/25 05:15 Eos % (Auto) 0.0 % (0.9-2.9) L 06/09/25 05:15 Baso % (Auto) 0.1 % (0.2-1.0) L 06/09/25 05:15 Neut # (Auto) 10.9 x10^3/uL (2.2-4.8) H 06/09/25 05:15 Lymph # (Auto) 0.8 X10^3/uL (1.3-2.9) L 06/09/25 05:15 [place] # (Auto) 0.3 x10^3/uL (0.3-0.8) 06/09/25 05:15 Eos # (Auto) 0.0 x10^3/uL (0.0-0.2) 06/09/25 05:15 Baso # (Auto) 0.0 X10^3/uL (0.0-0.1) 06/09/25 05:15 Absolute Nucleated RBC 0.0 /100WBC 06/09/25 05:15 Total Counted 100 06/09/25 05:15 Neutrophils % (Manual) 92 % (39-76) H 06/09/25 05:15 Lymphocytes % (Manual) 6 % (13-43) L 06/09/25 05:15 Monocytes % (Manual) 2 % (4-9) L 06/09/25 05:15 Plt Morphology Comment Normal (NORMAL) 06/09/25 05:15 RBC Morphology Normal (NORMAL) 06/09/25 05:15 PT 13.1 SECONDS (11.8-14.3) 06/07/25 10:07 INR Target Range - 06/07/25 10:07 INR 0.98 (0.8-1.3) 06/07/25 10:07 APTT 30.7 SECONDS (22.9-36.5) 06/07/25 10:07 PTT Comment - 06/07/25 10:07 D-Dimer 0.54 ug/ml (0.0-0.57) 06/07/25 10:07 Sample Site Rrad 06/07/25 09:44 ABG pH 7.310 (7.35-7.45) L 06/07/25 09:44 ABG pCO2 57.0 mmHg (35.0-45.0) H* 06/07/25 09:44 ABG pO2 40.0 mmHg (80.0-100.0) L* 06/07/25 09:44 ABG HCO3 28.7 mmol/L (22-26) H 06/07/25 09:44 ABG O2 Saturation 69.0 % (90-100) L* 06/07/25 09:44 ABG Base Excess 1.3 mmol/L (-2.0-2.0) 06/07/25 09:44 Arpit Test Pos 06/07/25 09:44 A-a Gradient 38.0 mmHg 06/07/25 09:44 FiO2 21.0 06/07/25 09:44 Blood Gas Comments Pt lorena well elj cdn 06/07/25 09:44 Sodium 135 mmol/L (136-145) L 06/09/25 05:15 Corrected Sodium 140 mmol/L (136-145) 06/09/25 05:15 Potassium 4.1 mmol/L (3.5-5.1) 06/09/25 05:15 Chloride 99 mmol/L (98-107) 06/09/25 05:15 Carbon Dioxide 29.7 mmol/L (21-32) 06/09/25 05:15 BUN 21 mg/dL (7-18) H 06/09/25 05:15 Creatinine 1.17 mg/dL (0.55-1.02) H 06/09/25 05:15 Est GFR (MDRD) Af Amer > 60 (>60) 06/09/25 05:15 Est GFR (MDRD) Non-Af 50 (>60) L 06/09/25 05:15 Glucose 303 mg/dL (65-99) H 06/09/25 05:15 POC Glucose (mg/dL) 289 mg/dL (65-99) H 06/09/25 05:39 Hemoglobin A1c 7.6 % 06/07/25 10:07 Lactic Acid 0.9 mmol/L (0.4-2.0) 06/07/25 10:07 Calcium 8.6 mg/dL (8.5-10.1) 06/09/25 05:15 Corrected Calcium 9.3 mg/dL (8.5-10.1) 06/09/25 05:15 Magnesium 2.2 mg/dL (2.0-2.9) 06/07/25 10:07 Total Bilirubin 0.20 mg/dL (0.2-1.0) 06/09/25 05:15 AST 12 Units/L (15-37) L 06/09/25 05:15 ALT 19 Units/L (12-78) 06/09/25 05:15 Alkaline Phosphatase 97 Units/L (46-116) 06/09/25 05:15 Creatine Kinase 238 Units/L (26-192) H 06/07/25 10:07 Troponin I High Sens 6.8 ng/L (4.0-60.0) 06/07/25 10:07 B-Natriuretic Peptide 24.5 pg/mL (0-79) 06/07/25 10:07 Total Protein 6.7 g/dL (6.4-8.2) 06/09/25 05:15 Albumin 3.1 g/dL (3.4-5.0) L 06/09/25 05:15 Globulin 3.6 g/dL (2.5-4.5) 06/09/25 05:15 Albumin/Globulin Ratio 0.9 Ratio (1.1-2.1) L 06/09/25 05:15 Plan (1) Multiple rib fractures: Status: Acute Qualifiers: Encounter type: initial encounter Fracture type: closed Laterality: r ight Qualified Code(s): S22.41XA - Multiple fractures of ribs, right side, initial encounter for closed fracture (2) Hypoxia: Status: Acute (3) Pneumonia: Status: Acute Qualifiers: Pneumonia type: due to unspecified organism Laterality: bilateral Lung location: unspecified part of lung Qualified Code(s): J18.9 - Pneumonia, unspecified organism (4) GERD (gastroesophageal reflux disease): Status: Chronic Qualifiers: Esophagitis presence: esophagitis presence not specified Qualified Code(s): K21.9 - Gastro-esophageal reflux disease without esophagitis (5) Osteoarthritis: Status: Chronic Qualifiers: Osteoarthritis location: multiple joints Osteoarthritis type: primary Qualified Code(s): M15.0 - Primary generalized (osteo)arthritis (6) COPD (chronic obstructive pulmonary disease) with acute bronchitis: Status: Chronic
[2025-06-09] MEDS: LEVAQUIN PREMIX IV 750 MG 750 MG/150 ML BAG IV SCH (11:28)
[2025-06-09] MEDS: MAALOX or MYLANTA PO PRN (11:48)
[2025-06-09] MEDS: ASPIRIN EC 81 MG PO SCH (13:39)
[2025-06-10 06:21] LABS: MEAN PLATELET VOLUME 8.5 fL (7.4-11.0); RED CELL DISTRIBUTION WIDTH 14.0 % (11.6-16.5)
[2025-06-10 06:30] LABS: COR CA(FOR HYPOALB) 9.8 mg/dL (8.5-10.1); COR NA(FOR HYPERGLY) 139 mmol/L (136-145); CREATININE 1.07 mg/dL (0.55-1.02); eGFR NON BLACK RACES 55 (>60)
[2025-06-10 12:21] VITALS: BP 131/60; PULSE 91; RESP 19; TEMP 98; O2SAT 96
--- NOTE | 2025-06-12 11:35 | W.DIS.FURT ---
Summary of Discharge Discharge Summary of Date Date of Exam: 06/10/25 Admission Date Date of Admission: 06/07/25 Admission Diagnosis Patient Problems (Updated 06/08/25 @ 11:13 by Fidelina Jacobs MD) Dehydration (Acute) E86.0 Multiple rib fractures (Acute) S22.49XA Hypoxia (Acute) R09.02 Acute respiratory distress (Acute) R06.03 Hospital Course: Patient is a 65-year-old female with a past medical history of CVA, tobacco use, COPD, type 2 diabetes, hypertension and hyperlipidemia presented with shortness of breath, respiratory distress and a recent fall. Patient reports having a fall a week ago and hit the right side of her chest. ER workup included imaging chest CTA which showed fractures of ribs 6 and 9 and bilateral ground glass opacities. ABG was consistent with hypoxia. She is currently on 4 L nasal cannula. She was started on IV antibiotics, bronchodilators, IS and steroids. Cultures were sent. She reports feeling slightly better. Her chest wall pain has been controlled with current medications. Her labs were monitored daily and electrolytes replaced as needed. She remains on 4L NC. She was not in any respiratory distress. She was ambulating in the room, tolerating PO intake. She does need home O2. Patient was stable to be discharged home with oxygen, antibiotics and steroids. She will follow up with PCP as scheduled. Vital Signs: Vital Signs (72 hours) 06/07/25 11:45 06/07/25 12:00 06/07/25 12:00 Temperature Pulse Rate 80 80 Pulse Rate [Left Brachial] Respiratory Rate 16 17 Blood Pressure 137/72 Blood Pressure [Left Arm] O2 Sat by Pulse Oximetry 98 97 Oxygen Delivery Method Oxygen Flow Rate FIO2% 06/07/25 12:20 06/07/25 12:45 06/07/25 12:54 Temperature 97.8 F Pulse Rate 80 Pulse Rate [Left Brachial] 82 Respiratory Rate 14 20 Blood Pressure 137/72 Blood Pressure [Left Arm] 132/59 O2 Sat by Pulse Oximetry 96 96 Oxygen Delivery Method Nasal Cannula Venturi Mask Venturi Mask Oxygen Flow Rate 6 6 FIO2% 06/07/25 13:57 06/07/25 14:27 06/07/25 15:21 Temperature Pulse Rate Pulse Rate [Left Brachial] Respiratory Rate 14 14 16 Blood Pressure Blood Pressure [Left Arm] O2 Sat by Pulse Oximetry Oxygen Delivery Method Oxygen Flow Rate FIO2% 06/07/25 16:21 06/07/25 17:01 06/07/25 17:31 Temperature 97.7 F Pulse Rate Pulse Rate [Left Brachial] 85 Respiratory Rate 18 18 18 Blood Pressure Blood Pressure [Left Arm] 129/60 O2 Sat by Pulse Oximetry 91 L Oxygen Delivery Method Nasal Cannula Oxygen Flow Rate 4 FIO2% 06/07/25 19:00 06/07/25 20:00 06/07/25 20:55 Temperature 98.5 F Pulse Rate Pulse Rate [Left Brachial] 90 Respiratory Rate 18 Blood Pressure Blood Pressure [Left Arm] 107/51 O2 Sat by Pulse Oximetry 89 L Oxygen Delivery Method Nasal Cannula Nasal Cannula Nasal Cannula Oxygen Flow Rate 4 4 FIO2% 36 06/07/25 20:55 06/07/25 23:26 06/08/25 00:00 Temperature 98.6 F Pulse Rate 84 Pulse Rate [Left Brachial] 87 Respiratory Rate 20 18 Blood Pressure Blood Pressure [Left Arm] 110/52 O2 Sat by Pulse Oximetry 89 L 87 L Oxygen Delivery Method Nasal Cannula Oxygen Flow Rate 4 FIO2% 06/08/25 00:26 06/08/25 04:00 06/08/25 05:27 Temperature 97.9 F Pulse Rate Pulse Rate [Left Brachial] 81 Respiratory Rate 20 18 20 Blood Pressure Blood Pressure [Left Arm] 128/62 O2 Sat by Pulse Oximetry 90 L Oxygen Delivery Method Nasal Cannula Oxygen Flow Rate 4 FIO2% 06/08/25 06:27 06/08/25 08:00 06/08/25 09:22 Temperature 97.6 F Pulse Rate Pulse Rate [Left Brachial] 84 Respiratory Rate 20 16 Blood Pressure Blood Pressure [Left Arm] 129/60 O2 Sat by Pulse Oximetry 93 L Oxygen Delivery Method Nasal Cannula Nasal Cannula Oxygen Flow Rate 4 4 FIO2% 36 06/08/25 09:22 06/08/25 09:23 06/08/25 09:32 Temperature Pulse Rate 82 Pulse Rate [Left Brachial] Respiratory Rate 16 Blood Pressure Blood Pressure [Left Arm] O2 Sat by Pulse Oximetry 92 L Oxygen Delivery Method Nasal Cannula Oxygen Flow Rate 4 FIO2% 06/08/25 11:01 06/08/25 11:45 06/08/25 12:01 Temperature 97.4 F L Pulse Rate Pulse Rate [Left Brachial] 88 Respiratory Rate 17 16 17 Blood Pressure Blood Pressure [Left Arm] 102/55 O2 Sat by Pulse Oximetry 94 L Oxygen Delivery Method Nasal Cannula Oxygen Flow Rate 4 FIO2% 06/08/25 16:00 06/08/25 19:00 06/08/25 19:37 Temperature 97.6 F Pulse Rate Pulse Rate [Left Brachial] 78 Respiratory Rate 20 18 Blood Pressure Blood Pressure [Left Arm] 132/60 O2 Sat by Pulse Oximetry 92 L Oxygen Delivery Method Nasal Cannula Nasal Cannula Oxygen Flow Rate 4 4 FIO2% 06/08/25 20:00 06/08/25 20:25 06/08/25 20:27 Temperature 98.3 F Pulse Rate 78 Pulse Rate [Left Brachial] 83 Respiratory Rate 18 Blood Pressure Blood Pressure [Left Arm] 111/53 O2 Sat by Pulse Oximetry 93 L 93 L Oxygen Delivery Method Nasal Cannula Room Air Oxygen Flow Rate 4 4 FIO2% 36 06/08/25 20:37 06/08/25 21:20 06/08/25 22:20 Temperature Pulse Rate Pulse Rate [Left Brachial] Respiratory Rate 16 18 16 Blood Pressure Blood Pressure [Left Arm] O2 Sat by Pulse Oximetry Oxygen Delivery Method Oxygen Flow Rate FIO2% 06/09/25 00:00 06/09/25 00:37 06/09/25 01:32 Temperature 97.9 F Pulse Rate 75 Pulse Rate [Left Brachial] 82 Respiratory Rate 18 18 Blood Pressure Blood Pressure [Left Arm] 109/52 O2 Sat by Pulse Oximetry 91 L 90 L Oxygen Delivery Method Nasal Cannula Oxygen Flow Rate 4 FIO2% 06/09/25 02:32 06/09/25 04:00 06/09/25 05:25 Temperature 98.0 F Pulse Rate 95 H Pulse Rate [Left Brachial] 75 Respiratory Rate 18 20 Blood Pressure Blood Pressure [Left Arm] 106/55 O2 Sat by Pulse Oximetry 90 L 94 L Oxygen Delivery Method Nasal Cannula Oxygen Flow Rate 4 FIO2% 06/09/25 06:16 06/09/25 07:00 06/09/25 07:16 Temperature Pulse Rate Pulse Rate [Left Brachial] Respiratory Rate 20 20 Blood Pressure Blood Pressure [Left Arm] O2 Sat by Pulse Oximetry Oxygen Delivery Method Nasal Cannula Oxygen Flow Rate 4 FIO2% 06/09/25 08:18 06/09/25 08:50 06/09/25 08:50 Temperature 97.6 F Pulse Rate 86 Pulse Rate [Left Brachial] 82 Respiratory Rate 16 Blood Pressure Blood Pressure [Left Arm] 116/58 O2 Sat by Pulse Oximetry 91 L 94 L Oxygen Delivery Method Nasal Cannula Nasal Cannula Oxygen Flow Rate 4 4 FIO2% 36 06/09/25 09:41 06/09/25 10:41 06/09/25 11:41 Temperature Pulse Rate Pulse Rate [Left Brachial] Respiratory Rate 16 16 16 Blood Pressure Blood Pressure [Left Arm] O2 Sat by Pulse Oximetry Oxygen Delivery Method Oxygen Flow Rate FIO2% 06/09/25 11:56 06/09/25 13:39 06/09/25 14:39 Temperature 98.1 F Pulse Rate Pulse Rate [Left Brachial] 91 H Respiratory Rate 16 16 16 Blood Pressure Blood Pressure [Left Arm] 123/58 O2 Sat by Pulse Oximetry 95 Oxygen Delivery Method Nasal Cannula Oxygen Flow Rate 4 FIO2% 06/09/25 16:00 06/09/25 16:31 06/09/25 17:31 Temperature 97.6 F Pulse Rate Pulse Rate [Left Brachial] 88 Respiratory Rate 17 17 17 Blood Pressure Blood Pressure [Left Arm] 134/64 O2 Sat by Pulse Oximetry 94 L Oxygen Delivery Method Nasal Cannula Oxygen Flow Rate 4 FIO2% 06/09/25 19:00 06/09/25 20:00 06/09/25 20:36 Temperature 98.1 F Pulse Rate Pulse Rate [Left Brachial] 85 Respiratory Rate 18 19 Blood Pressure Blood Pressure [Left Arm] 120/54 O2 Sat by Pulse Oximetry 90 L Oxygen Delivery Method Nasal Cannula Nasal Cannula Oxygen Flow Rate 4 4 FIO2% 06/09/25 21:20 06/09/25 21:22 06/09/25 21:36 Temperature Pulse Rate 84 Pulse Rate [Left Brachial] Respiratory Rate 17 Blood Pressure Blood Pressure [Left Arm] O2 Sat by Pulse Oximetry 96 Oxygen Delivery Method Nasal Cannula Oxygen Flow Rate 4 FIO2% 36 06/10/25 00:00 06/10/25 04:00 06/10/25 05:40 Temperature 98.0 F 98.4 F Pulse Rate Pulse Rate [Left Brachial] 80 76 Respiratory Rate 18 18 Blood Pressure Blood Pressure [Left Arm] 128/59 146/65 O2 Sat by Pulse Oximetry 92 L 93 L Oxygen Delivery Method Nasal Cannula Nasal Cannula Nasal Cannula Oxygen Flow Rate 4 4 4 FIO2% 36 06/10/25 06:09 06/10/25 07:35 06/10/25 10:14 Temperature 97.7 F Pulse Rate Pulse Rate [Left Brachial] 80 Respiratory Rate 20 17 17 Blood Pressure Blood Pressure [Left Arm] 133/63 O2 Sat by Pulse Oximetry 93 L Oxygen Delivery Method Nasal Cannula Oxygen Flow Rate 4 FIO2% 06/10/25 10:25 06/10/25 10:40 Temperature Pulse Rate Pulse Rate [Left Brachial] Respiratory Rate Blood Pressure Blood Pressure [Left Arm] O2 Sat by Pulse Oximetry Oxygen Delivery Method Nasal Cannula Nasal Cannula Oxygen Flow Rate 4 4 FIO2% 36 Labs: Laboratory Last Values WBC 13.0 X10^3/uL (3.6-10.0) H 06/10/25 05:15 RBC 3.61 X10^6/uL (3.5-5.4) 06/10/25 05:15 Hgb 10.2 g/dL (12.0-16.0) L 06/10/25 05:15 Hct 30.0 % (36.0-47.0) L 06/10/25 05:15 MCV 83.1 fL (80.0-100.0) 06/10/25 05:15 MCH 28.2 pg (27.0-34.0) 06/10/25 05:15 MCHC 33.9 g/dL (33.0-35.0) 06/10/25 05:15 RDW 14.0 % (11.6-16.5) 06/10/25 05:15 Plt Count 274 X10^3/uL (150.0-450.0) 06/10/25 05:15 Plt Count Comment Adequate (ADEQUATE) 06/09/25 05:15 MPV 8.5 fL (7.4-11.0) 06/10/25 05:15 Neut % (Auto) 88.7 % (42.0-75.0) H 06/10/25 05:15 Lymph % (Auto) 6.6 % (21.0-51.0) L 06/10/25 05:15 Stanley % (Auto) 4.6 % (0.0-13.0) 06/10/25 05:15 Eos % (Auto) 0.0 % (0.9-2.9) L 06/10/25 05:15 Baso % (Auto) 0.1 % (0.2-1.0) L 06/10/25 05:15 Neut # (Auto) 11.5 x10^3/uL (2.2-4.8) H 06/10/25 05:15 Lymph # (Auto) 0.9 X10^3/uL (1.3-2.9) L 06/10/25 05:15 Stanley # (Auto) 0.6 x10^3/uL (0.3-0.8) 06/10/25 05:15 Eos # (Auto) 0.0 x10^3/uL (0.0-0.2) 06/10/25 05:15 Baso # (Auto) 0.0 X10^3/uL (0.0-0.1) 06/10/25 05:15 Absolute Nucleated RBC 0.2 /100WBC 06/10/25 05:15 Total Counted 100 06/09/25 05:15 Neutrophils % (Manual) 92 % (39-76) H 06/09/25 05:15 Lymphocytes % (Manual) 6 % (13-43) L 06/09/25 05:15 Monocytes % (Manual) 2 % (4-9) L 06/09/25 05:15 Plt Morphology Comment Normal (NORMAL) 06/09/25 05:15 RBC Morphology Normal (NORMAL) 06/09/25 05:15 PT 13.1 SECONDS (11.8-14.3) 06/07/25 10:07 INR Target Range - 06/07/25 10:07 INR 0.98 (0.8-1.3) 06/07/25 10:07 APTT 30.7 SECONDS (22.9-36.5) 06/07/25 10:07 PTT Comment - 06/07/25 10:07 D-Dimer 0.54 ug/ml (0.0-0.57) 06/07/25 10:07 Sample Site Rrad 06/07/25 09:44 ABG pH 7.310 (7.35-7.45) L 06/07/25 09:44 ABG pCO2 57.0 mmHg (35.0-45.0) H* 06/07/25 09:44 ABG pO2 40.0 mmHg (80.0-100.0) L* 06/07/25 09:44 ABG HCO3 28.7 mmol/L (22-26) H 06/07/25 09:44 ABG O2 Saturation 69.0 % (90-100) L* 06/07/25 09:44 ABG Base Excess 1.3 mmol/L (-2.0-2.0) 06/07/25 09:44 Arpit Test Pos 06/07/25 09:44 A-a Gradient 38.0 mmHg 06/07/25 09:44 FiO2 21.0 06/07/25 09:44 Blood Gas Comments Pt lorena well elj cdn 06/07/25 09:44 Sodium 134 mmol/L (136-145) L 06/10/25 05:15 Corrected Sodium 139 mmol/L (136-145) 06/10/25 05:15 Potassium 4.2 mmol/L (3.5-5.1) 06/10/25 05:15 Chloride 100 mmol/L (98-107) 06/10/25 05:15 Carbon Dioxide 30.5 mmol/L (21-32) 06/10/25 05:15 BUN 22 mg/dL (7-18) H 06/10/25 05:15 Creatinine 1.07 mg/dL (0.55-1.02) H 06/10/25 05:15 Est GFR (MDRD) Af Amer > 60 (>60) 06/10/25 05:15 Est GFR (MDRD) Non-Af 55 (>60) L 06/10/25 05:15 Glucose 300 mg/dL (65-99) H 06/10/25 05:15 POC Glucose (mg/dL) 363 mg/dL (65-99) H 06/10/25 11:16 Hemoglobin A1c 7.6 % 06/07/25 10:07 Lactic Acid 0.9 mmol/L (0.4-2.0) 06/07/25 10:07 Calcium 9.0 mg/dL (8.5-10.1) 06/10/25 05:15 Corrected Calcium 9.8 mg/dL (8.5-10.1) 06/10/25 05:15 Magnesium 2.2 mg/dL (2.0-2.9) 06/07/25 10:07 Total Bilirubin 0.30 mg/dL (0.2-1.0) 06/10/25 05:15 AST 10 Units/L (15-37) L 06/10/25 05:15 ALT 15 Units/L (12-78) 06/10/25 05:15 Alkaline Phosphatase 96 Units/L (46-116) 06/10/25 05:15 Creatine Kinase 238 Units/L (26-192) H 06/07/25 10:07 Troponin I High Sens 6.8 ng/L (4.0-60.0) 06/07/25 10:07 B-Natriuretic Peptide 24.5 pg/mL (0-79) 06/07/25 10:07 Total Protein 6.5 g/dL (6.4-8.2) 06/10/25 05:15 Albumin 3.0 g/dL (3.4-5.0) L 06/10/25 05:15 Globulin 3.5 g/dL (2.5-4.5) 06/10/25 05:15 Albumin/Globulin Ratio 0.9 Ratio (1.1-2.1) L 06/10/25 05:15 Reason For Visit: RIGHT-SIDED PNEUMONIA, HYPOXIA, RESPIRATORY Discharge Diagnosis All Active Problems (Updated 06/08/25 @ 11:13 by Fidelina Jacobs MD) Pneumonia (Acute) Dehydration (Acute) Multiple rib fractures (Acute) Hypoxia (Acute) Acute respiratory distress (Acute) Nausea and vomiting (Acute) Acute anxiety (Acute) Right foot pain (Acute) Abdominal cramping (Acute) Pain in left toe(s) (Acute) Cholelithiasis (Acute) History of angina (Chronic) Hypertension (Chronic) Hyperlipidemia (Chronic) GERD (gastroesophageal reflux disease) (Chronic) Osteoarthritis (Chronic) Depression (Chronic) Shoulder sprain (Acute) Arthritis (Acute) CVA (cerebral vascular accident) (Acute) COPD (chronic obstructive pulmonary disease) with acute bronchitis (Chronic) Shingles (Acute) Uncontrolled hypertension (Acute) Current recreational drug use (Acute) Right-sided chest wall pain (Acute) COVID-19 (Acute) Abdominal pain (Acute) Plan of Treatment: Continue with present treatment and follow up plan. Pt is to keep follow up appointment as instructed and take medications as ordered. Discharge Medications Discharge Medications: Penicillins Allergy (Unknown, Verified 06/07/25 11:48) CONTINUE taking the following medications baclofen 20 mg tablet 20 mg PO QHS Muscle Spasms 06/07/25 [History] pantoprazole 40 mg tablet,delayed release 40 mg PO QDAY Acid Reflux 06/07/25 [History] quetiapine 100 mg tablet 100 mg PO QHS Irritability 06/07/25 [History] rosuvastatin 20 mg tablet 20 mg PO QHS High Cholesteremia 06/07/25 [History] New Prescriptions levofloxacin 500 mg tablet 500 mg PO QDAY 5 days #5 tabs 06/10/25 [Rx] methylprednisolone 4 mg tablets in a dose pack (Medrol (Shubham)) See Rx Instructions PO .COMPLEX #21 ea 06/10/25 [Rx] Discharge Disposition Discharge Disposition: home Discharge Condition: stable Discharge Plan Discharge Plan Hospital Course: Patient is a 65-year-old female with a past medical history of CVA, tobacco use, COPD, type 2 diabetes, hypertension and hyperlipidemia presented with shortness of breath, respiratory distress and a recent fall. Patient reports having a fall a week ago and hit the right side of her chest. ER workup included imaging chest CTA which showed fractures of ribs 6 and 9 and bilateral ground glass opacities. ABG was consistent with hypoxia. She is currently on 4 L nasal cannula. She was started on IV antibiotics, bronchodilators, IS and steroids. Cultures were sent. She reports feeling slightly better. Her chest wall pain has been controlled with current medications. Her labs were monitored daily and electrolytes replaced as needed. She remains on 4L NC. She was not in any respiratory distress. She was ambulating in the room, tolerating PO intake. She does need home O2. Patient was stable to be discharged home with oxygen, ant ibiotics and steroids. She will follow up with PCP as scheduled. Patient Disposition: 01 HOME, SELF-CARE Condition: Stable Health Concerns: Post Hospitalization: new medications and changes needed to prevent readmission or further decline. Pt educated and given instructions on all concerns. Plan of Treatment: Continue with present treatment and follow up plan. Pt is to keep follow up appointment as instructed and take medications as ordered. Prescription drug monitoring program results: PDMP reviewed and no concerns identified Prescriptions: New levofloxacin 500 mg tablet 500 mg PO QDAY 5 Days Qty: 5 0RF methylprednisolone [Medrol (Shubham)] 4 mg tablets,dose pack See Rx Instructions .ROUTE .COMPLEX Qty: 21 0RF Rx Instructions: for 6 days Continued lisinopril-hydrochlorothiazide 20-25 mg tablet 1 tab PO QDAY Qty: 90 3RF aspirin 81 mg tablet,delayed release (DR/EC) 81 mg PO ONCE Qty: 90 3RF citalopram 40 mg tablet 40 mg PO QDAY Qty: 90 3RF gabapentin 400 mg capsule 400 mg PO TID Qty: 270 3RF clopidogrel 75 mg tablet 75 mg PO QDAY Qty: 90 3RF dicyclomine 20 mg tablet 20 mg PO QID Qty: 60 2RF hydrocodone-acetaminophen 7.5-325 mg tablet 1 tab PO Q8H MDD 3 per 24 Hours PRN (Reason: pain) 30 Days Qty: 30 0RF promethazine 50 mg tablet 50 mg PO Q6H PRN (Reason: nausea and vomiting) Qty: 30 2RF quetiapine 100 mg tablet 100 mg PO QHS baclofen 20 mg tablet 20 mg PO QHS pantoprazole 40 mg tablet,delayed release (DR/EC) 40 mg PO QDAY rosuvastatin 20 mg tablet 20 mg PO QHS Follow ups/Referrals Follow ups/Referrals: Atul Jacome MD [Primary Care Provider, MEDICAL] - 3 days Instructions Stand Alone Forms: Excuse From Work or School, Find Help Web Site, Post Hospital Follow Up Care Print Language: DJIBOUTIAN
== END 2025-06-10 15:25 | disposition home or self-care (01) | DRG 183 ==
LOC: ER 09:47 → MED/SURG 12:11
PROVIDERS: ADMIT Family Medicine; ATTEND Family Medicine
DX: J20.8 Acute bronchitis due to other specified organisms; Z86.73 Personal history of transient ischemic attack (TIA), and cerebral infarction without residual deficits; R10.11 Right upper quadrant pain; M15.0 Primary generalized (osteo)arthritis; Y92.9 Unspecified place or not applicable; Z72.0 Tobacco use; R06.02 Shortness of breath; W01.198A Fall on same level from slipping, tripping and stumbling with subsequent striking against other object, initial encounter; J90 Pleural effusion, not elsewhere classified; J18.8 Other pneumonia, unspecified organism; E87.1 Hypo-osmolality and hyponatremia; D72.828 Other elevated white blood cell count; S22.41XA Multiple fractures of ribs, right side, initial encounter for closed fracture; J44.0 Chronic obstructive pulmonary disease with (acute) lower respiratory infection; D64.89 Other specified anemias; E86.0 Dehydration; K21.9 Gastro-esophageal reflux disease without esophagitis; R09.02 Hypoxemia; R79.89 Other specified abnormal findings of blood chemistry; E11.65 Type 2 diabetes mellitus with hyperglycemia; E78.5 Hyperlipidemia, unspecified; I10 Essential (primary) hypertension; R06.03 Acute respiratory distress